=== PATIENT | female | born 2000 | race Caucasian/White ===

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

== ENCOUNTER 2020-06-13 17:20 | Observation (INO) | payer BC ==
[2020-06-13] MEDS ORDERED: Sodium Chloride 0.9% 1000 ML 1,000 ML IV STA (17:44)
--- NOTE | 2020-06-13 17:54 | ERPHSYRPT ---
- History of Present Illness Time Seen by Provider: 06/13/20 17:50 Source: patient Exam Limitations: no limitations Patient Subjective Stated Complaint: emesis, dizziness, abd pain Triage Nursing Assessment: pt to ED c/o vomiting, abd pain, dizziness unknown exact onset. states she has had this issue in past, recently seen in ED at [facility] for same. given toradol and felt better. states emesis many times since 1130 this am. she reports feeling fine at work and getting hot sensation and breaking out in hives, followed by emesis. rates 7/10 abd pain in periumbilicus area. Physician History: Patient is a 20-year-old female presents to our ED with complaints of nausea vomiting abdominal pain and dehydration. Patient states that this typically happens to her after her menstrual period patient states she developed her period, experiences cramping then nausea vomiting and dehydration. Vomiting is nonbloody nonbilious. Symptoms are mild to moderate in intensity. Patient's abdominal pain is periumbilical. Pain is constant. Patient had similar symptoms a few days ago. She followed up with her primary care doctor who treated her with Toradol and symptoms resolved. Allergies/Adverse Reactions: acetaminophen [From [place]] Allergy (Verified 06/13/20 17:52) codeine Allergy (Verified 01/27/19 01:25) Hives hydrocodone [From [place]] Allergy (Verified 06/13/20 17:52) Home Medications: No Reportable Medications [No Reported Medications] 06/13/20 [History] Hx Tetanus, Diphtheria Vaccination/Date Given: Yes Hx Influenza Vaccination/Date Given: Yes Hx Pneumococcal Vaccination/Date Given: No Travel Risk - International Travel Have you traveled outside of the country in past 3 weeks: No - Coronavirus Screening Are you exhibiting any of the following symptoms?: Yes Symptoms: Vomiting/Diarrhea Close contact with a COVID-19 positive Pt in past 14-21 Days: No - Review of Systems Constitutional: No Symptoms, No Fever, No Chills Eyes: No Symptoms Ears, Nose, & Throat: No Symptoms Respiratory: No Symptoms, No Cough, No Dyspnea Cardiac: No Symptoms, No Chest Pain, No Edema, No Syncope Abdominal/Gastrointestinal: No Symptoms, No Abdominal Pain, No Nausea, No Vomiting, No Diarrhea Genitourinary Symptoms: No Symptoms, No Dysuria Musculoskeletal: No Symptoms, No Back Pain, No Neck Pain Skin: No Symptoms, No Rash Neurological: No Symptoms, No Dizziness, No Focal Weakness, No Sensory Changes Psychological: No Symptoms Endocrine: No Symptoms Hematologic/Lymphatic: No Symptoms Immunological/Allergic: No Symptoms All Other Systems: Reviewed and Negative - Past Medical History Pertinent Past Medical History: Yes Neurological History: No Pertinent History ENT History: No Pertinent History Cardiac History: No Pertinent History Respiratory History: No Pertinent History Endocrine Medical History: No Pertinent History Musculoskeletal History: Fractures GI Medical History: No Pertinent History History: No Pertinent History Psycho-Social History: No Pertinent History Female Reproductive Disorders: Endometriosis Other Medical History: fx left ankle, dehydration, ovarian cysts - Past Surgical History Past Surgical History: Yes Neuro Surgical History: No Pertinent History Cardiac: No Pertinent History Respiratory: No Pertinent History Gastrointestinal: Appendectomy Genitourinary: No Pertinent History Musculoskeletal: No Pertinent History Female Surgical History: No Pertinent History Other Surgical History: wisdom teeth removed - Social History Smoking Status: Never smoker Exposure to second hand smoke: Yes Drug Use: none Patient Lives Alone: No - Female History Hx Last Menstrual Period: just ended yesterday Hx Now: No - Nursing Vital Signs Nursing Vital Signs: Initial Vital Signs Temperature 98.3 F 06/13/20 17:43 Pulse Rate 68 06/13/20 17:43 Respiratory Rate 18 06/13/20 17:43 Blood Pressure 153/96 06/13/20 17:43 O2 Sat by Pulse Oximetry 99 06/13/20 17:43 Pain Scale Pain Intensity 5 - Physical Exam General Appearance: no apparent distress, alert Eye Exam: PERRL/EOMI, eyes nml inspection Ears, Nose, Throat Exam: normal ENT inspection, TMs normal, pharynx normal, moist mucous membranes Neck Exam: normal inspection, non-tender, supple, full range of motion Respiratory Exam: normal breath sounds, lungs clear, No respiratory distress Cardiovascular Exam: regular rate/rhythm, normal heart sounds, normal peripheral pulses Gastrointestinal/Abdomen Exam: soft, normal bowel sounds, tenderness, other (Periumbilical tenderness to palpation. Patient has history of appendectomy.), No mass Back Exam: normal inspection, normal range of motion, No CVA tenderness, No vertebral tenderness Extremity Exam: normal inspection, normal range of motion, pelvis stable Neurologic Exam: alert, oriented x 3, cooperative, normal mood/affect, nml cerebellar function, nml station & gait, sensation nml, No motor deficits Skin Exam: normal color, warm, dry, No rash Lymphatic Exam: No adenopathy SpO2 Interpretation: normal SpO2: 99 O2 Delivery: Room Air - Course Nursing assessment & vital signs reviewed: Yes - CT Exams Abdomen/Pelvis CT Interpretation: Tele-radiologist Report (Mild diffuse fecal stasis, 13.4 cm splenomegaly and appendectomy. Also new minimal urinary bladder debris of uncertain etiology. Remaining abdomen pelvis is negative.) Ordered Tests: Active Orders 24 hr Category Date Time Status Up With Assistance ROUTINE Activity 06/13/20 23:40 Active Code Status Order ROUTINE Care 06/13/20 23:40 Active IV Care Q6H Care 06/13/20 23:40 Active IV Insertion STAT Care 06/13/20 17:44 Completed Neuro Checks Q4H Care 06/13/20 23:[address] in Observation ROUTINE Care 06/13/20 23:40 Active Clear Liquid Diet 06/13/20 Breakfast Active ABDOMEN AND PELVIS W CONTRAST [CT] Stat Exams 06/13/20 19:21 Taken CBC W DIFF AM.LAB Lab 06/14/20 04:00 Ordered CBC W DIFF Stat Lab 06/13/20 17:38 Completed CMP AM.LAB Lab 06/14/20 04:00 Ordered CMP Stat Lab 06/13/20 17:38 Completed CULTURE,URINE Stat Lab 06/13/20 19:37 Received HCG QUALITATIVE,SERUM Stat Lab 06/13/20 Completed LIPASE Stat Lab 06/13/20 17:38 Completed Lactic Acid Stat Lab 06/13/20 19:47 Completed Lactic Acid Stat Lab 06/13/20 21:55 Received [place] Screen Stat Lab 06/13/20 21:30 Completed UA W/RFX UR CULTURE Stat Lab 06/13/20 19:37 Completed Urine Triage Profile Stat Lab 06/13/20 21:48 Completed Pulse Oximetry CONTINUOUS RT 06/13/20 23:40 Active Transfer Order Routine Transfer 06/13/20 Completed Medication Summary Generic Name Dose Route Start Last Admin Trade Name Freq PRN Reason Stop Dose Admin Sodium Chloride 1,000 mls @ 100 mls/hr 06/13/20 23:40 Sodium Chloride 0.9% 1000 Ml IV 07/13/20 23:39 .Q10H NANI Ondansetron HCl 4 mg 06/13/20 23:40 Zofran 4 Mg/2 Ml Vial IV 07/13/20 23:39 Q6H PRN PRN NAUSEA/VOMITING Discontinued Medications Generic Name Dose Route Start Last Admin Trade Name Freq PRN Reason Stop Dose Admin Dicyclomine HCl 20 mg 06/13/20 22:16 06/13/20 22:25 Bentyl 20 Mg PO 06/13/20 22:17 20 mg ONCE STA Administration Dicyclomine HCl Confirm 06/13/20 22:24 Bentyl 20 Mg Administered 06/13/20 22:25 Dose 20 mg .ROUTE .STK-MED ONE Sodium Chloride 1,000 mls @ 999 mls/hr 06/13/20 17:44 06/13/20 20:31 Sodium Chloride 0.9% 1000 Ml IV 06/13/20 18:44 Infused .Q1H1M STA Infusion Sodium Chloride Confirm 06/13/20 17:55 Sodium Chloride 0.9% 1000 Ml Administered 06/13/20 17:56 Dose 1,000 mls @ ud .ROUTE .STK-MED ONE Ceftriaxone Sodium/Dextrose 1 g in 50 mls @ 100 mls/hr 06/13/20 20:14 06/13/20 20:30 Rocephin 1 Gm-D5w 50 Ml Bag IV 06/13/20 20:43 100 ml/hr STAT ONE 100 mls/hr Administration Ceftriaxone Sodium/Dextrose Confirm 06/13/20 20:17 Rocephin 1 Gm-D5w 50 Ml Bag Administered 06/13/20 20:18 Dose 1 g in 50 mls @ ud IV .STK-MED ONE Ketorolac Tromethamine 30 mg 06/13/20 19:50 06/13/20 19:58 Toradol 30 Mg Injection IV 06/13/20 19:51 30 mg STAT ONE Administration Ketorolac Tromethamine Confirm 06/13/20 19:57 Toradol 30 Mg Injection Administered 06/13/20 19:58 Dose 30 mg .ROUTE .STK-MED ONE Metoclopramide HCl 10 mg 06/13/20 21:43 06/13/20 21:47 Reglan 10 Mg/2 Ml IV 06/13/20 21:44 10 mg STAT ONE Administration Metoclopramide HCl Confirm 06/13/20 21:45 Reglan 10 Mg/2 Ml Administered 06/13/20 21:46 Dose 10 mg .ROUTE .STK-MED ONE Ondansetron HCl Confirm 06/13/20 18:09 Zofran 4 Mg/2 Ml Vial Administered 06/13/20 18:10 Dose 4 mg .ROUTE .STK-MED ONE Ondansetron HCl 4 mg 06/13/20 18:11 06/13/20 18:13 Zofran 4 Mg/2 Ml Vial IV 06/13/20 18:12 4 mg STAT ONE Administration Lab/Rad Data: Laboratory Result Diagrams 06/13/20 17:38 06/13/20 17:38 Laboratory Results 06/13/20 06/13/20 06/13/20 Range/Units 21:48 21:30 19:47 WBC (4.0-10.5) K/mm3 RBC (4.1-5.4) M/mm3 Hgb (12.0-16.0) gm/dl Hct (35-47) % MCV (78-100) fl MCH (26-32) pg MCHC (32-36) g/dl RDW (11.5-14.0) % Plt Count (150-450) K/mm3 MPV (7.5-11.0) fl Gran % (36.0-66.0) % Eos # (Auto) (0-0.5) Absolute Lymphs (auto) (1.0-4.6) Absolute Monos (auto) (0.0-1.3) Lymphocytes % (24.0-44.0) % Monocytes % (0.0-12.0) % Eosinophils % (0.00-5.0) % Basophils % (0.0-0.4) % Absolute Granulocytes (1.4-6.9) Basophils # (0-0.4) Sodium (137-145) mmol/L Potassium (3.5-5.1) mmol/L Chloride (98-107) mmol/L Carbon Dioxide (22-30) mmol/L Anion Gap (5-15) MEQ/L BUN (7-17) mg/dL Creatinine (0.52-1.04) mg/dL Estimated GFR ML/MIN Glucose (74-106) mg/dL Lactic Acid 2.0 (0.4-2.0) Calcium (8.4-10.2) mg/dL Total Bilirubin (0.2-1.3) mg/dL AST (14-36) U/L ALT (0-35) U/L Alkaline Phosphatase (38-126) U/L Serum Total Protein (6.3-8.2) g/dL Albumin (3.5-5.0) g/dL Lipase (23-300) U/L Urine Color (YELLOW) Urine Appearance (CLEAR) Urine pH (5-6) Ur Specific [place] (1.005-1.025) Urine Protein (Negative) Urine Ketones (NEGATIVE) Urine Blood (0-5) [place]/ul Urine Nitrite (NEGATIVE) Urine Bilirubin (NEGATIVE) Urine Urobilinogen (0-1) mg/dL Ur Leukocyte Esterase (NEGATIVE) Urine WBC (Auto) (0-5) /HPF Urine RBC (Auto) (0-2) /HPF U Epithel Cells (Auto) (FEW) /HPF Urine Bacteria (Auto) (NEGATIVE) /HPF Amorphous Crystals (NEGATIVE) /HPF Urine Mucus (Auto) (NEGATIVE) /HPF Urine Culture Reflexed (NO) Urine Glucose (NEGATIVE) mg/dL Urine Opiates Level NEGATIVE (NEGATIVE) Ur Methadone NEGATIVE (NEGATIVE) Urine Barbiturates NEGATIVE (NEGATIVE) Ur Phencyclidine (PCP) NEGATIVE (NEGATIVE) Urine Amphetamine NEGATIVE (NEGATIVE) U Benzodiazepine Level NEGATIVE (NEGATIVE) Urine Cocaine NEGATIVE (NEGATIVE) Urine Marijuana (THC) NEGATIVE (NEGATIVE) Monoscreen WEAKLY POSITIVE (Negative) 06/13/20 06/13/20 06/13/20 Range/Units 19:37 17:38 17:38 WBC 8.9 (4.0-10.5) K/mm3 RBC 5.07 (4.1-5.4) M/mm3 Hgb 14.4 (12.0-16.0) gm/dl Hct 42.8 (35-47) % MCV 84.4 (78-100) fl MCH 28.4 (26-32) pg MCHC 33.6 (32-36) g/dl RDW 13.4 (11.5-14.0) % Plt Count 260 (150-450) K/mm3 MPV 9.5 (7.5-11.0) fl Gran % 53.7 (36.0-66.0) % Eos # (Auto) 0.01 (0-0.5) Absolute Lymphs (auto) 3.08 (1.0-4.6) Absolute Monos (auto) 1.02 (0.0-1.3) Lymphocytes % 34.6 (24.0-44.0) % Monocytes % 11.4 (0.0-12.0) % Eosinophils % 0.1 (0.00-5.0) % Basophils % 0.2 (0.0-0.4) % Absolute Granulocytes 4.78 (1.4-6.9) Basophils # 0.02 (0-0.4) Sodium 137 (137-145) mmol/L Potassium 3.8 (3.5-5.1) mmol/L Chloride 101 (98-107) mmol/L Carbon Dioxide 26 (22-30) mmol/L Anion Gap 13.5 (5-15) MEQ/L BUN 11 (7-17) mg/dL Creatinine 0.73 (0.52-1.04) mg/dL Estimated GFR > 60.0 ML/MIN Glucose 129 H (74-106) mg/dL Lactic Acid (0.4-2.0) Calcium 10.1 (8.4-10.2) mg/dL Total Bilirubin 0.80 (0.2-1.3) mg/dL AST 30 (14-36) U/L ALT 44 H (0-35) U/L Alkaline Phosphatase 76 (38-126) U/L Serum Total Protein 8.3 H (6.3-8.2) g/dL Albumin 4.7 (3.5-5.0) g/dL Lipase 98 (23-300) U/L Urine Color YELLOW (YELLOW) Urine Appearance CLOUDY (CLEAR) Urine pH 8.0 (5-6) Ur Specific [place] 1.023 (1.005-1.025) Urine Protein 30 (Negative) Urine Ketones TRACE (NEGATIVE) Urine Blood MODERATE (0-5) [place]/ul Urine Nitrite NEGATIVE (NEGATIVE) Urine Bilirubin NEGATIVE (NEGATIVE) Urine Urobilinogen 2 (0-1) mg/dL Ur Leukocyte Esterase NEGATIVE (NEGATIVE) Urine WBC (Auto) 3-5 (0-5) /HPF Urine RBC (Auto) NONE (0-2) /HPF U Epithel Cells (Auto) NONE (FEW) /HPF Urine Bacteria (Auto) FEW (NEGATIVE) /HPF Amorphous Crystals FEW (NEGATIVE) /HPF Urine Mucus (Auto) SLIGHT (NEGATIVE) /HPF Urine Culture Reflexed YES (NO) Urine Glucose NEGATIVE (NEGATIVE) mg/dL Urine Opiates Level (NEGATIVE) Ur Methadone (NEGATIVE) Urine Barbiturates (NEGATIVE) Ur Phencyclidine (PCP) (NEGATIVE) Urine Amphetamine (NEGATIVE) U Benzodiazepine Level (NEGATIVE) Urine Cocaine (NEGATIVE) Urine Marijuana (THC) (NEGATIVE) Monoscreen (Negative) - Progress Progress: improved Progress Note: 06/13/20 21:49 Patient reassessed. She transiently improved. Patient requested discharge. Upon reexamination however patient stated she felt nauseous again. Patient vomited while EDMD in room. Patient received dose of Rocephin for UTI. Splenomegaly observed on CT abdomen pelvis. Monospot ordered. Monospot pending. Urine toxicology screen ordered as well. Patient denies vaginal discharge. No pelvic pain. Patient denies the possibility of STI. Patient declined pelvic exam. Case discussed with Dr. Shen who accepts admission to observation. Plan of care discussed with patient. We will admit patient to observation and treatment of intractable nausea and vomiting. Discussed with .: Matthew Will see patient in: hospital (observation) Counseled pt/family regarding: lab results, diagnosis, rad results - Departure Departure Disposition: Observation Clinical Impression: Nausea and vomiting, UTI (urinary tract infection), Constipation, Mononucleosis Condition: Stable Critical Care Time: No
[2020-06-13] MEDS ORDERED: Sodium Chloride 0.9% 1000 ML 1,000 ML ONE (17:55)
[2020-06-13 18:06] LABS: Absolute Neutrophil Ct (ANC) 4.78 (1.4-6.9); BASOPHIL % 0.2 % (0.0-0.4); Basophil (Absolute #) 0.02 (0-0.4); Eosinophil % 0.1 % (0.00-5.0); Eosinophil (Absolute #) 0.01 (0-0.5); Hematocrit 42.8 % (35-47); Hemoglobin 14.4 gm/dl (12.0-16.0); Lymphocyte (Absolute #) 3.08 (1.0-4.6); Lymphocytes % 34.6 % (24.0-44.0); Mean Cell Volume 84.4 fl (78-100); Mean Corpuscular Hemoglobin 28.4 pg (26-32); Mean Corpuscular Hgb Concent. 33.6 g/dl (32-36); Mean Platelet Volume 9.5 fl (7.5-11.0); Monocyte (Absolute #) 1.02 (0.0-1.3); Monocytes % 11.4 % (0.0-12.0); Neutrophil % 53.7 % (36.0-66.0); Platelet Count 260 K/mm3 (150-450); Red Blood Count 5.07 M/mm3 (4.1-5.4); Red Cell Distribution Width 13.4 % (11.5-14.0); White Blood Count 8.9 K/mm3 (4.0-10.5)
[2020-06-13] MEDS ORDERED: Zofran 4 MG/2 ML VIAL ONE (18:09)
[2020-06-13] MEDS ORDERED: Zofran 4 MG/2 ML VIAL IV ONE (18:11)
[2020-06-13 18:25] LABS: ALBUMIN 4.7 g/dL (3.5-5.0); ALKALINE PHOSPHATASE 76 U/L (38-126); ANION GAP 13.5 MEQ/L (5-15); BLOOD UREA NITROGEN 11 mg/dL (7-17); CHLORIDE 101 mmol/L (98-107); Calcium 10.1 mg/dL (8.4-10.2); Carbon Dioxide 26 mmol/L (22-30); Creatinine 1 0.73 mg/dL (0.52-1.04); EST GLOMERULAR FILTRATION RATE > 60.0 ML/MIN; Glucose 129 mg/dL (74-106); LIPASE 98 U/L (23-300); Potassium 3.8 mmol/L (3.5-5.1); SGOT/AST 30 U/L (14-36); SGPT/ALT 44 U/L (0-35); SODIUM 137 mmol/L (137-145); Total Protein 8.3 g/dL (6.3-8.2)
[2020-06-13] MEDS ORDERED: TORAdol 30 mg Injection IV ONE (19:50)
[2020-06-13] MEDS ORDERED: TORAdol 30 mg Injection ONE (19:57)
[2020-06-13] MEDS ORDERED: ROCEPHIN 1 Gm-D5w 50 ml Bag** 1 G/50 ML IVPB IV ONE ×2 (20:14→20:17)
[2020-06-13 20:32] LABS: Amourphous Crystal FEW /HPF (NEGATIVE); Appearance CLOUDY (CLEAR); Bacteria FEW /HPF (NEGATIVE); Bilirubin NEGATIVE (NEGATIVE); Blood MODERATE Ery/ul (0-5); Glucose NEGATIVE (NEGATIVE); Ketones TRACE (NEGATIVE); Leukocyte Esterase NEGATIVE (NEGATIVE); Mucus SLIGHT /HPF (NEGATIVE); Nitrite NEGATIVE (NEGATIVE); Protein,Urine Dip 30 (Negative); Specific Gravity 1.023 (1.005-1.025); Urobilinogen 2 mg/dL (0-1)
[2020-06-13] MEDS ORDERED: Reglan 10 MG/2 ML IV ONE (21:43)
[2020-06-13] MEDS ORDERED: Reglan 10 MG/2 ML ONE (21:45)
[2020-06-13 22:12] LABS: Amphetamine,Urine NEGATIVE (NEGATIVE); Barbiturate,Urine NEGATIVE (NEGATIVE); Benzodiazepine,Urine NEGATIVE (NEGATIVE); Cocaine,Urine NEGATIVE (NEGATIVE); Methadone,Urine NEGATIVE (NEGATIVE); Opiate,Urine NEGATIVE (NEGATIVE); PCP,Urine NEGATIVE (NEGATIVE); THC,Urine NEGATIVE (NEGATIVE)
[2020-06-13] MEDS ORDERED: BENTYL 20 MG PO STA (22:16)
[2020-06-13] MEDS ORDERED: BENTYL 20 MG ONE (22:24)
[2020-06-13] MEDS ORDERED: Sodium Chloride 0.9% 1000 ML 1,000 ML IV SCH (23:40)
[2020-06-13] MEDS ORDERED: Zofran 4 MG/2 ML VIAL IV PRN (23:40)
[2020-06-14 07:12] LABS: ALKALINE PHOSPHATASE 58 U/L (38-126); ANION GAP 9.8 MEQ/L (5-15); BLOOD UREA NITROGEN 9 mg/dL (7-17); CHLORIDE 105 mmol/L (98-107); Calcium 9.4 mg/dL (8.4-10.2); Carbon Dioxide 24 mmol/L (22-30); Creatinine 1 0.73 mg/dL (0.52-1.04); EST GLOMERULAR FILTRATION RATE > 60.0 ML/MIN; Glucose 96 mg/dL (74-106); Potassium 3.8 mmol/L (3.5-5.1); SGOT/AST 27 U/L (14-36); SGPT/ALT 35 U/L (0-35); SODIUM 135 mmol/L (137-145); Total Protein 7.1 g/dL (6.3-8.2)
[2020-06-14 07:13] LABS: Absolute Neutrophil Ct (ANC) 4.12 (1.4-6.9); BASOPHIL % 0.1 % (0.0-0.4); Basophil (Absolute #) 0.01 (0-0.4); Eosinophil % 0.1 % (0.00-5.0); Eosinophil (Absolute #) 0.01 (0-0.5); Hemoglobin 13.7 gm/dl (12.0-16.0); Lymphocyte (Absolute #) 2.97 (1.0-4.6); Lymphocytes % 36.3 % (24.0-44.0); Mean Cell Volume 84.9 fl (78-100); Mean Corpuscular Hemoglobin 28.4 pg (26-32); Mean Corpuscular Hgb Concent. 33.4 g/dl (32-36); Mean Platelet Volume 9.6 fl (7.5-11.0); Monocyte (Absolute #) 1.07 (0.0-1.3); Monocytes % 13.1 % (0.0-12.0); Neutrophil % 50.4 % (36.0-66.0); Platelet Count 262 K/mm3 (150-450); Red Blood Count 4.83 M/mm3 (4.1-5.4); Red Cell Distribution Width 13.4 % (11.5-14.0); White Blood Count 8.2 K/mm3 (4.0-10.5)
[2020-06-14] MEDS ORDERED: solu-MEDROL 125 MG IV ONE (08:30)
--- NOTE | 2020-06-14 08:47 | XRAY ---
Indication: Nausea and vomiting. "Bad period pain." Multiple contiguous axial images obtained through the abdomen and pelvis using 80 cc Isovue 370 contrast. Comparison: January 26, 2019. Lung bases remain clear. Heart is not enlarged. Noncontrasted stomach and bowel loops appear nonobstructed with interval appendectomy. There is now mild diffuse scattered colonic fecal debris. Spleen is now enlarged measuring 13.4 cm. Tiny cul-de-sac fluid presumed physiologic from rupture/leaking cyst. Urinary bladder demonstrates a new intraluminal filling defect at least 1.2 x 2.8 cm towards the right possibly debris or blood clots. Urinary bladder mass not completely excluded. Remaining liver, gallbladder, pancreas, spleen, adrenal glands, kidneys, ureters, bladder, uterus, and aorta appear unremarkable. No pathologic retroperitoneal lymphadenopathy. Osseous structures intact. Impression: 1. New urinary bladder filling defect possibly debris or blood clots. Bladder mass not completely excluded. Cystoscopy may yield further information. 2. New diffuse fecal stasis and splenomegaly. 3. Tiny physiologic cul-de-sac fluid.
[2020-06-14] MEDS: Dextrose 5% -0.45 NaCl 1000 ML 1,000 ML IV SCH ×2 (09:17→16:00)
[2020-06-14 16:26] VITALS: BP 120/62; PULSE 71; O2SAT 96
--- NOTE | 2020-06-15 08:07 | SSS ---
DISCHARGE DIAGNOSES: 1) MONONUCLEOSIS. 2) URINARY TRACT INFECTION. 3) DEHYDRATION. HISTORY: The patient is a 20 year-old white female who presented to our emergency room with recurrent vomiting, nausea and pelvic pain. The patient has been sick for about a week. She presented to my office initially and given Zofran to take at home, a shot of Phenergan and Toradol which she did better for about a day. She represented to the emergency room at [facility] with the same problems and received a liter of IV fluid and given the same medications plus droperidol and when she was getting drowsy they sent her home but she reports as soon as that wore off she was back to vomiting again which brought her to our emergency room and admitted once again for the dehydration and the vomiting. On workup the patient was found to have a weakly positive mono test and 3 to 5 white blood cells per high power field but did apparently have positive gram-negative rods on the urine culture at this time. The patient was also found on CT scan to have filling defect in the bladder of unknown cause and this is new from the previous evaluations. PAST MEDICAL/SURGICAL HISTORY: The patient otherwise is a 20 year-old female with no medical problems ordinarily. She does have problems with vomiting and nausea when she is on her period cycle which she thought got this started in the first place. The patient was tested for COVID and it was negative. MEDICATIONS: The patient is on no routine home medications. ALLERGIES: ACETAMINOPHEN. HYDROCODONE FROM [place]. CODEINE. PHYSICAL EXAMINATION: Her vital signs on admission showed temperature to be 98.3F, pulse 68, respiratory rate 18 and blood pressure 153/96. O2 saturation 99%. HEENT: Normocephalic, atraumatic. Pupils equal round reactive to light. Extraocular movements intact. Oropharynx is dry. NECK: Supple without lymphadenopathy, thyromegaly or JVD. CHEST: Clear to auscultation. HEART: Regular rate and rhythm. ABDOMEN: Soft. No palpable masses. EXTREMITIES: Without cyanosis, clubbing or edema. NEUROLOGIC: The patient is alert and oriented x3. No focal deficits are noted. LAB DATA AND TESTS: The patient's laboratory studies thus far again the COVID test was negative. Sedimentation rate was 5. Procalcitonin level was normal range at 0.67. The metabolic panel was entirely normal other than sodium slightly slow at 135. She did have normal CBC as well with a white count of 8,200. She had gram-negative rods with ID and sensitivity pending on the urine culture. [place] screen was weakly positive. She had HCG which was negative. UA as catch revealed cloudy with specific gravity 1.023 and 3 to 5 white blood cells per high power field. Lactic acid initially was 2.0. Urine drug screen was negative. She had the CT scan again showing new urinary bladder filling defect possible for debris or blood clots. Bladder mass not completely excluded. There was new diffuse fecal stasis, splenomegaly and tiny physiologic cul-de-sac fluid. HOSPITAL COURSE: The patient was admitted to the medicine bates. She was given Rocephin for what appears to be urinary tract infection while the cultures are pending. We will send her home with Bactrim DS twice a day for seven days again pending the culture report. We will check the serum for IgG and IgM for Braden-Pierce virus to try to confirm whether or not that mono actually caused her illness and as an outpatient once the patient settles down we will do an ultrasound of the pelvis specifically to look at the bladder to see if this filling defect appears to be real. If it is, she will have outpatient cystoscopy.
== END 2020-06-14 18:46 | disposition home or self-care (01) ==
LOC: ED 17:20 → MED SURG 23:26
PROVIDERS: ADMIT Family Medicine; ATTEND Family Medicine
DX: B27.90 Infectious mononucleosis, unspecified without complication (principal); R42 Dizziness and giddiness; R10.9 Unspecified abdominal pain; R11.10 Vomiting, unspecified; E86.0 Dehydration; N39.0 Urinary tract infection, site not specified; Z11.59 Encounter for screening for other viral diseases
CPT/HCPCS: 36000; 36415; 74177; 80053; 80307; 81001; 81025; 83605; 83690; 84145; 85025; 85652; 86308; 86664; 86665; 87077; 87086; 87186; 96360; 96365; 96374; 96375; 99284; G0378; U0003; J0696; J1885; J2405; J2930; A9270-GY

== ENCOUNTER 2020-06-22 17:16 | Emergency (ER) | payer BC ==
[2020-06-22] MEDS ORDERED: Zofran 4 MG/2 ML VIAL IV ONE (17:35)
[2020-06-22] MEDS ORDERED: Zofran 4 MG/2 ML VIAL ONE (17:42)
[2020-06-22] MEDS ORDERED: Sodium Chloride 0.9% 1000 ML 1,000 ML ONE ×3 (17:42→19:33)
[2020-06-22] MEDS: Sodium Chloride 0.9% 1000 ML 1,000 ML IV STA ×2 (17:45→18:47)
[2020-06-22 17:58] LABS: Absolute Neutrophil Ct (ANC) 4.93 (1.4-6.9); BASOPHIL % 0.3 % (0.0-0.4); Basophil (Absolute #) 0.02 (0-0.4); Eosinophil % 0.1 % (0.00-5.0); Eosinophil (Absolute #) 0.01 (0-0.5); Hematocrit 40.5 % (35-47); Hemoglobin 13.8 gm/dl (12.0-16.0); Lymphocyte (Absolute #) 1.63 (1.0-4.6); Lymphocytes % 22.5 % (24.0-44.0); Mean Cell Volume 82.7 fl (78-100); Mean Corpuscular Hemoglobin 28.2 pg (26-32); Mean Corpuscular Hgb Concent. 34.1 g/dl (32-36); Mean Platelet Volume 9.4 fl (7.5-11.0); Monocyte (Absolute #) 0.65 (0.0-1.3); Neutrophil % 68.1 % (36.0-66.0); Platelet Count 222 K/mm3 (150-450); Red Cell Distribution Width 13.6 % (11.5-14.0); White Blood Count 7.2 K/mm3 (4.0-10.5)
[2020-06-22 18:03] LABS: Amourphous Crystal FEW /HPF (NEGATIVE); Appearance CLOUDY (CLEAR); Bacteria RARE /HPF (NEGATIVE); Bilirubin NEGATIVE (NEGATIVE); Blood SMALL Ery/ul (0-5); Epithelial Cells RARE /HPF (FEW); Glucose NEGATIVE (NEGATIVE); Ketones MODERATE (NEGATIVE); Leukocyte Esterase NEGATIVE (NEGATIVE); Mucus SLIGHT /HPF (NEGATIVE); Nitrite NEGATIVE (NEGATIVE); Protein,Urine Dip 30 (Negative); Specific Gravity 1.021 (1.005-1.025); Urobilinogen NEGATIVE mg/dL (0-1); WBC 0-2 /HPF (0-5)
--- NOTE | 2020-06-22 18:06 | ERPHSYRPT ---
- History of Present Illness Time Seen by Provider: 06/22/20 17:22 Historian: patient Exam Limitations: no limitations Patient Subjective Stated Complaint: pt here for abd pain and vomiting since 1400 today, she is being treated for a UTI now Triage Nursing Assessment: pt alert, walked in, vomited x1, resp easy,, skin w/d/pabd soft and tender to touch Physician History: Patient is a 20-year-old female presents to our ED with complaints of nausea vomiting and epigastric pain. Patient was in our ED approximately 1 week ago for the same. She was diagnosed with a urinary tract infection. Patient was admitted to the hospital for treatment. Patient was discharged. Patient is still taking Bactrim antibiotic which was prescribed to her at time of discharge. Patient states since discharge she had been feeling well up until today. She was at work when she developed acute onset periumbilical pain with nausea and vomiting. Pain described as an ache that is localized. No radiation per se, However she has con commitment back pain. No specific worsening improving factors. Patient also states that she has been experiencing some vaginal discharge. Patient admits to being sexually active occasionally wearing protection. Patient is otherwise healthy. She voices no other complaints or concerns at this time. Timing/Duration: today Activities at Onset: none Quality: aching Abdominal Pain Onset Location: periumbilical Pain Radiation: no radiation Severity of Pain-Max: moderate Severity of Pain-Current: mild Modifying Factors: Improves With: nothing Associated Symptoms: back, nausea, vomiting, No fever/chills, No shortness of breath, No syncope Allergies/Adverse Reactions: acetaminophen [From [place]] Allergy (Verified 06/22/20 17:31) codeine Allergy (Verified 06/22/20 17:31) Hives hydrocodone [From [place]] Allergy (Verified 06/22/20 17:31) Hx Tetanus, Diphtheria Vaccination/Date Given: Yes Hx Influenza Vaccination/Date Given: Yes Hx Pneumococcal Vaccination/Date Given: No Immunizations Up to Date: Yes Travel Risk - International Travel Have you traveled outside of the country in past 3 weeks: No - Coronavirus Screening Are you exhibiting any of the following symptoms?: Yes Symptoms: Vomiting/Diarrhea Close contact with a COVID-19 positive Pt in past 14-21 Days: No - Review of Systems Constitutional: No Symptoms, No Fever, No Chills Eyes: No Symptoms Ears, Nose, & Throat: No Symptoms Respiratory: No Symptoms, No Cough, No Dyspnea Cardiac: No Symptoms, No Chest Pain, No Edema, No Syncope Abdominal/Gastrointestinal: No Symptoms, No Abdominal Pain, No Nausea, No Vomiting, No Diarrhea Genitourinary Symptoms: No Symptoms, No Dysuria Musculoskeletal: No Symptoms, No Back Pain, No Neck Pain Skin: No Symptoms, No Rash Neurological: No Symptoms, No Dizziness, No Focal Weakness, No Sensory Changes Psychological: No Symptoms Endocrine: No Symptoms Hematologic/Lymphatic: No Symptoms Immunological/Allergic: No Symptoms All Other Systems: Reviewed and Negative - Past Medical History Pertinent Past Medical History: Yes Neurological History: No Pertinent History ENT History: No Pertinent History Cardiac History: No Pertinent History Respiratory History: No Pertinent History Endocrine Medical History: No Pertinent History Musculoskeletal History: Fractures GI Medical History: No Pertinent History History: No Pertinent History Psycho-Social History: No Pertinent History Female Reproductive Disorders: Endometriosis Other Medical History: fx left ankle, dehydration, ovarian cysts - Past Surgical History Past Surgical History: Yes Neuro Surgical History: No Pertinent History Cardiac: No Pertinent History Respiratory: No Pertinent History Gastrointestinal: Appendectomy Genitourinary: No Pertinent History Musculoskeletal: No Pertinent History Female Surgical History: No Pertinent History Other Surgical History: wisdom teeth removed - Social History Smoking Status: Never smoker Exposure to second hand smoke: No Drug Use: none Patient Lives Alone: No - Female History Hx Last Menstrual Period: 1week ago Hx Now: No - Nursing Vital Signs Nursing Vital Signs: Initial Vital Signs Temperature 97.9 F 06/22/20 17:18 Pulse Rate 95 H 06/22/20 17:18 Respiratory Rate 16 06/22/20 17:18 Blood Pressure 150/98 06/22/20 17:18 O2 Sat by Pulse Oximetry 100 06/22/20 17:18 Pain Scale Pain Intensity 2 - Physical Exam General Appearance: no apparent distress Eye Exam: PERRL/EOMI, eyes nml inspection, scleral icterus Ears, Nose, Throat Exam: normal ENT inspection Neck Exam: normal inspection, non-tender, supple, full range of motion Respiratory Exam: normal breath sounds, lungs clear, No respiratory distress Cardiovascular Exam: regular rate/rhythm, normal heart sounds Gastrointestinal/Abdomen Exam: soft, tenderness, other (Periumbilical tenderness to palpation.), No mass, No pulsatile mass, No hepatomegaly, No organomegaly Pelvic Exam: normal external exam, No adnexal tenderness, No adnexal mass, No cervical motion tenderness, No vaginal bleeding, No vaginal discharge Back Exam: normal inspection, normal range of motion, No CVA tenderness Extremity Exam: normal inspection, normal range of motion, pelvis stable Neurologic Exam: alert, oriented x 3, cooperative, 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 Remaining abdomen/pelvis negative.) Ordered Tests: Active Orders 24 hr Category Date Time Status IV Insertion STAT Care 06/22/20 17:35 Active Pelvic Exam Assist STAT Care 06/22/20 17:46 Active ABDOMEN AND PELVIS W/0 CONTRAS [CT] Stat Exams 06/22/20 18:44 Taken CBC W DIFF Stat Lab 06/22/20 17:54 Completed CMP Stat Lab 06/22/20 17:54 Completed CULTURE,URINE Stat Lab 06/22/20 17:49 Received HCG,QUALITATIVE URINE Stat Lab 06/22/20 17:50 Completed LIPASE Stat Lab 06/22/20 17:54 Completed MAG [MAGNESIUM] Stat Lab 06/22/20 17:54 Completed TROPONIN Q3H Lab 06/22/20 17:54 Completed TROPONIN Q3H Lab 06/22/20 20:59 Completed TROPONIN Q3H Lab 06/22/20 23:45 Ordered TROPONIN Q3H Lab 06/23/20 02:45 Ordered TROPONIN Q3H Lab 06/23/20 05:45 Ordered TSH [TSH, 3RD Generation] Stat Lab 06/22/20 17:53 Completed UA W/RFX UR CULTURE Stat Lab 06/22/20 17:49 Completed Urine Triage Profile Stat Lab 06/22/20 17:49 Completed Wet Prep Stat Lab 06/22/20 18:00 Completed Medication Summary Generic Name Dose Route Start Last Admin Trade Name Freq PRN Reason Stop Dose Admin Potassium Chloride 20 meq in 100 mls @ 50 mls/hr 06/22/20 18:45 06/22/20 21:32 Potassium Chloride 20 Meq In Water 100ml IV 06/22/20 22:44 50 mls/hr Q2H NANI Administration Sodium Chloride 1,000 mls @ 100 mls/hr 06/22/20 18:45 06/22/20 19:33 Sodium Chloride 0.9% 1000 Ml IV 07/22/20 18:44 100 mls/hr .Q10H NANI Administration Discontinued Medications Generic Name Dose Route Start Last Admin Trade Name Tarik PRN Reason Stop Dose Admin Al Hydrox/Mg Hydrox/Simethicone Confirm 06/22/20 19:26 Maalox Es 30 Ml Unit Dose Administered 06/22/20 19:27 Dose 30 ml .ROUTE .STK-MED ONE Droperidol 1.25 mg 06/22/20 21:15 06/22/20 21:33 Inapsine 5 Mg/2 Ml IV 06/22/20 21:16 1.25 mg STAT ONE Administration Droperidol Confirm 06/22/20 21:27 Inapsine 5 Mg/2 Ml Administered 06/22/20 21:28 Dose 5 mg .ROUTE .STK-MED ONE Sodium Chloride 1,000 mls @ 999 mls/hr 06/22/20 17:35 06/22/20 18:47 Sodium Chloride 0.9% 1000 Ml IV 06/22/20 18:35 999 mls/hr .Q1H1M STA Administration Sodium Chloride Confirm 06/22/20 17:42 Sodium Chloride 0.9% 1000 Ml Administered 06/22/20 17:43 Dose 1,000 mls @ ud .ROUTE .STK-MED ONE Ceftriaxone Sodium/Dextrose 1 g in 50 mls @ 100 mls/hr 06/22/20 18:28 06/22/20 19:34 Rocephin 1 Gm-D5w 50 Ml Bag IV 06/22/20 18:57 Infused STAT ONE Infusion Ceftriaxone Sodium/Dextrose Confirm 06/22/20 18:45 Rocephin 1 Gm-D5w 50 Ml Bag Administered 06/22/20 18:46 Dose 1 g in 50 mls @ ud IV .STK-MED ONE Ketorolac Tromethamine 30 mg 06/22/20 18:41 06/22/20 18:47 Toradol 30 Mg Injection IV 06/22/20 18:42 30 mg STAT ONE Administration Ketorolac Tromethamine Confirm 06/22/20 18:44 Toradol 30 Mg Injection Administered 06/22/20 18:45 Dose 30 mg .ROUTE .STK-MED ONE Lidocaine HCl Confirm 06/22/20 19:25 Xylocaine Hcl Viscous * Administered 06/22/20 19:26 Dose 15 ml .ROUTE .STK-MED ONE Magnesium Hydroxide 45 ml 06/22/20 18:51 06/22/20 19:31 Gi Cocktail 45 Ml (Maalox/Lidocaine) PO 06/22/20 18:52 45 ml STAT ONE Administration Ondansetron HCl 4 mg 06/22/20 17:35 06/22/20 17:45 Zofran 4 Mg/2 Ml Vial IV 06/22/20 17:36 4 mg STAT ONE Administration Ondansetron HCl Confirm 06/22/20 17:42 Zofran 4 Mg/2 Ml Vial Administered 06/22/20 17:43 Dose 4 mg .ROUTE .STK-MED ONE Pantoprazole Sodium 40 mg 06/22/20 18:50 06/22/20 18:57 Protonix 40 Mg Iv IV 06/22/20 18:51 40 mg STAT ONE Administration Pantoprazole Sodium Confirm 06/22/20 18:53 Protonix 40 Mg Iv Administered 06/22/20 18:54 Dose 40 mg IV .STK-MED ONE Lab/Rad Data: Laboratory Result Diagrams 06/22/20 17:54 06/22/20 17:54 Laboratory Results 06/22/20 06/22/20 06/22/20 Range/Units 20:59 18:00 17:54 WBC (4.0-10.5) K/mm3 RBC (4.1-5.4) M/mm3 Hgb (12.0-16.0) gm/dl Hct (35-47) % MCV (78-100) fl MCH (26-32) pg MCHC (32-36) g/dl RDW (11.5-14.0) % Plt Count (150-450) K/mm3 MPV (7.5-11.0) fl Gran % (36.0-66.0) % Eos # (Auto) (0-0.5) Absolute Lymphs (auto) (1.0-4.6) Absolute Monos (auto) (0.0-1.3) Lymphocytes % (24.0-44.0) % Monocytes % (0.0-12.0) % Eosinophils % (0.00-5.0) % Basophils % (0.0-0.4) % Absolute Granulocytes (1.4-6.9) Basophils # (0-0.4) Sodium (137-145) mmol/L Potassium (3.5-5.1) mmol/L Chloride (98-107) mmol/L Carbon Dioxide (22-30) mmol/L Anion Gap (5-15) MEQ/L BUN (7-17) mg/dL Creatinine (0.52-1.04) mg/dL Estimated GFR ML/MIN Glucose (74-106) mg/dL Calcium (8.4-10.2) mg/dL Magnesium 1.9 (1.6-2.3) mg/dL Total Bilirubin (0.2-1.3) mg/dL AST (14-36) U/L ALT (0-35) U/L Alkaline Phosphatase (38-126) U/L Troponin I < 0.012 (0.000-0.034) ng/mL Serum Total Protein (6.3-8.2) g/dL Albumin (3.5-5.0) g/dL Lipase (23-300) U/L TSH 3rd Generation (0.47-4.68) mIU/L Urine Color (YELLOW) Urine Appearance (CLEAR) Urine pH (5-6) Ur Specific [place] (1.005-1.025) Urine Protein (Negative) Urine Ketones (NEGATIVE) Urine Blood (0-5) [place]/ul Urine Nitrite (NEGATIVE) Urine Bilirubin (NEGATIVE) Urine Urobilinogen (0-1) mg/dL Ur Leukocyte Esterase (NEGATIVE) Urine WBC (Auto) (0-5) /HPF Urine RBC (Auto) (0-2) /HPF U Epithel Cells (Auto) (FEW) /HPF Urine Bacteria (Auto) (NEGATIVE) /HPF Amorphous Crystals (NEGATIVE) /HPF Urine Mucus (Auto) (NEGATIVE) /HPF Urine Culture Reflexed (NO) Urine Glucose (NEGATIVE) mg/dL Urine HCG, Qual (Negative) WBC (Wet Prep) Few RBC (Wet Prep) None Seen Epi Cells (Wet Prep) Few Bacteria (Wet Prep) Rare Clue Cells (Wet Prep) None Seen Trichomonas (Wet Prep) None Seen Budding Yeast (Wet Prp) None Seen Urine Opiates Level (NEGATIVE) Ur Methadone (NEGATIVE) Urine Barbiturates (NEGATIVE) Ur Phencyclidine (PCP) (NEGATIVE) Urine Amphetamine (NEGATIVE) U Benzodiazepine Level (NEGATIVE) Urine Cocaine (NEGATIVE) Urine Marijuana (THC) (NEGATIVE) Chlamydia DNA Probe (NEGATIVE) N.gonorrhoeae DNA Probe (NEGATIVE) 06/22/20 06/22/20 06/22/20 Range/Units 17:54 17:54 17:54 WBC 7.2 (4.0-10.5) K/mm3 RBC 4.90 (4.1-5.4) M/mm3 Hgb 13.8 (12.0-16.0) gm/dl Hct 40.5 (35-47) % MCV 82.7 (78-100) fl MCH 28.2 (26-32) pg MCHC 34.1 (32-36) g/dl RDW 13.6 (11.5-14.0) % Plt Count 222 (150-450) K/mm3 MPV 9.4 (7.5-11.0) fl Gran % 68.1 H (36.0-66.0) % Eos # (Auto) 0.01 (0-0.5) Absolute Lymphs (auto) 1.63 (1.0-4.6) Absolute Monos (auto) 0.65 (0.0-1.3) Lymphocytes % 22.5 L (24.0-44.0) % Monocytes % 9.0 (0.0-12.0) % Eosinophils % 0.1 (0.00-5.0) % Basophils % 0.3 (0.0-0.4) % Absolute Granulocytes 4.93 (1.4-6.9) Basophils # 0.02 (0-0.4) Sodium 134 L (137-145) mmol/L Potassium 3.1 L (3.5-5.1) mmol/L Chloride 101 (98-107) mmol/L Carbon Dioxide 20 L (22-30) mmol/L Anion Gap 16.2 H (5-15) MEQ/L BUN 13 (7-17) mg/dL Creatinine 0.87 (0.52-1.04) mg/dL Estimated GFR > 60.0 ML/MIN Glucose 127 H (74-106) mg/dL Calcium 10.1 (8.4-10.2) mg/dL Magnesium (1.6-2.3) mg/dL Total Bilirubin 1.10 (0.2-1.3) mg/dL AST 37 H (14-36) U/L ALT 52 H (0-35) U/L Alkaline Phosphatase 75 (38-126) U/L Troponin I < 0.012 (0.000-0.034) ng/mL Serum Total Protein 8.1 (6.3-8.2) g/dL Albumin 4.7 (3.5-5.0) g/dL Lipase 108 (23-300) U/L TSH 3rd Generation (0.47-4.68) mIU/L Urine Color (YELLOW) Urine Appearance (CLEAR) Urine pH (5-6) Ur Specific [place] (1.005-1.025) Urine Protein (Negative) Urine Ketones (NEGATIVE) Urine Blood (0-5) [place]/ul Urine Nitrite (NEGATIVE) Urine Bilirubin (NEGATIVE) Urine Urobilinogen (0-1) mg/dL Ur Leukocyte Esterase (NEGATIVE) Urine WBC (Auto) (0-5) /HPF Urine RBC (Auto) (0-2) /HPF U Epithel Cells (Auto) (FEW) /HPF Urine Bacteria (Auto) (NEGATIVE) /HPF Amorphous Crystals (NEGATIVE) /HPF Urine Mucus (Auto) (NEGATIVE) /HPF Urine Culture Reflexed (NO) Urine Glucose (NEGATIVE) mg/dL Urine HCG, Qual (Negative) WBC (Wet Prep) RBC (Wet Prep) Epi Cells (Wet Prep) Bacteria (Wet Prep) Clue Cells (Wet Prep) Trichomonas (Wet Prep) Budding Yeast (Wet Prp) Urine Opiates Level (NEGATIVE) Ur Methadone (NEGATIVE) Urine Barbiturates (NEGATIVE) Ur Phencyclidine (PCP) (NEGATIVE) Urine Amphetamine (NEGATIVE) U Benzodiazepine Level (NEGATIVE) Urine Cocaine (NEGATIVE) Urine Marijuana (THC) (NEGATIVE) Chlamydia DNA Probe (NEGATIVE) N.gonorrhoeae DNA Probe (NEGATIVE) 06/22/20 06/22/20 06/22/20 Range/Units 17:53 17:50 17:49 WBC (4.0-10.5) K/mm3 RBC (4.1-5.4) M/mm3 Hgb (12.0-16.0) gm/dl Hct (35-47) % MCV (78-100) fl MCH (26-32) pg MCHC (32-36) g/dl RDW (11.5-14.0) % Plt Count (150-450) K/mm3 MPV (7.5-11.0) fl Gran % (36.0-66.0) % Eos # (Auto) (0-0.5) Absolute Lymphs (auto) (1.0-4.6) Absolute Monos (auto) (0.0-1.3) Lymphocytes % (24.0-44.0) % Monocytes % (0.0-12.0) % Eosinophils % (0.00-5.0) % Basophils % (0.0-0.4) % Absolute Granulocytes (1.4-6.9) Basophils # (0-0.4) Sodium (137-145) mmol/L Potassium (3.5-5.1) mmol/L Chloride (98-107) mmol/L Carbon Dioxide (22-30) mmol/L Anion Gap (5-15) MEQ/L BUN (7-17) mg/dL Creatinine (0.52-1.04) mg/dL Estimated GFR ML/MIN Glucose (74-106) mg/dL Calcium (8.4-10.2) mg/dL Magnesium (1.6-2.3) mg/dL Total Bilirubin (0.2-1.3) mg/dL AST (14-36) U/L ALT (0-35) U/L Alkaline Phosphatase (38-126) U/L Troponin I (0.000-0.034) ng/mL Serum Total Protein (6.3-8.2) g/dL Albumin (3.5-5.0) g/dL Lipase (23-300) U/L TSH 3rd Generation 1.450 (0.47-4.68) mIU/L Urine Color (YELLOW) Urine Appearance (CLEAR) Urine pH (5-6) Ur Specific [place] (1.005-1.025) Urine Protein (Negative) Urine Ketones (NEGATIVE) Urine Blood (0-5) [place]/ul Urine Nitrite (NEGATIVE) Urine Bilirubin (NEGATIVE) Urine Urobilinogen (0-1) mg/dL Ur Leukocyte Esterase (NEGATIVE) Urine WBC (Auto) (0-5) /HPF Urine RBC (Auto) (0-2) /HPF U Epithel Cells (Auto) (FEW) /HPF Urine Bacteria (Auto) (NEGATIVE) /HPF Amorphous Crystals (NEGATIVE) /HPF Urine Mucus (Auto) (NEGATIVE) /HPF Urine Culture Reflexed (NO) Urine Glucose (NEGATIVE) mg/dL Urine HCG, Qual NEGATIVE (Negative) WBC (Wet Prep) RBC (Wet Prep) Epi Cells (Wet Prep) Bacteria (Wet Prep) Clue Cells (Wet Prep) Trichomonas (Wet Prep) Budding Yeast (Wet Prp) Urine Opiates Level NEGATIVE (NEGATIVE) Ur Methadone NEGATIVE (NEGATIVE) Urine Barbiturates NEGATIVE (NEGATIVE) Ur Phencyclidine (PCP) NEGATIVE (NEGATIVE) Urine Amphetamine NEGATIVE (NEGATIVE) U Benzodiazepine Level NEGATIVE (NEGATIVE) Urine Cocaine NEGATIVE (NEGATIVE) Urine Marijuana (THC) NEGATIVE (NEGATIVE) Chlamydia DNA Probe (NEGATIVE) N.gonorrhoeae DNA Probe (NEGATIVE) 06/22/20 06/22/20 Range/Units 17:49 17:46 WBC (4.0-10.5) K/mm3 RBC (4.1-5.4) M/mm3 Hgb (12.0-16.0) gm/dl Hct (35-47) % MCV (78-100) fl MCH (26-32) pg MCHC (32-36) g/dl RDW (11.5-14.0) % Plt Count (150-450) K/mm3 MPV (7.5-11.0) fl Gran % (36.0-66.0) % Eos # (Auto) (0-0.5) Absolute Lymphs (auto) (1.0-4.6) Absolute Monos (auto) (0.0-1.3) Lymphocytes % (24.0-44.0) % Monocytes % (0.0-12.0) % Eosinophils % (0.00-5.0) % Basophils % (0.0-0.4) % Absolute Granulocytes (1.4-6.9) Basophils # (0-0.4) Sodium (137-145) mmol/L Potassium (3.5-5.1) mmol/L Chloride (98-107) mmol/L Carbon Dioxide (22-30) mmol/L Anion Gap (5-15) MEQ/L BUN (7-17) mg/dL Creatinine (0.52-1.04) mg/dL Estimated GFR ML/MIN Glucose (74-106) mg/dL Calcium (8.4-10.2) mg/dL Magnesium (1.6-2.3) mg/dL Total Bilirubin (0.2-1.3) mg/dL AST (14-36) U/L ALT (0-35) U/L Alkaline Phosphatase (38-126) U/L Troponin I (0.000-0.034) ng/mL Serum Total Protein (6.3-8.2) g/dL Albumin (3.5-5.0) g/dL Lipase (23-300) U/L TSH 3rd Generation (0.47-4.68) mIU/L Urine Color YELLOW (YELLOW) Urine Appearance CLOUDY (CLEAR) Urine pH 7.0 (5-6) Ur Specific [place] 1.021 (1.005-1.025) Urine Protein 30 (Negative) Urine Ketones MODERATE (NEGATIVE) Urine Blood SMALL (0-5) [place]/ul Urine Nitrite NEGATIVE (NEGATIVE) Urine Bilirubin NEGATIVE (NEGATIVE) Urine Urobilinogen NEGATIVE (0-1) mg/dL Ur Leukocyte Esterase NEGATIVE (NEGATIVE) Urine WBC (Auto) 0-2 (0-5) /HPF Urine RBC (Auto) 11-15 (0-2) /HPF U Epithel Cells (Auto) RARE (FEW) /HPF Urine Bacteria (Auto) RARE (NEGATIVE) /HPF Amorphous Crystals FEW (NEGATIVE) /HPF Urine Mucus (Auto) SLIGHT (NEGATIVE) /HPF Urine Culture Reflexed YES (NO) Urine Glucose NEGATIVE (NEGATIVE) mg/dL Urine HCG, Qual (Negative) WBC (Wet Prep) RBC (Wet Prep) Epi Cells (Wet Prep) Bacteria (Wet Prep) Clue Cells (Wet Prep) Trichomonas (Wet Prep) Budding Yeast (Wet Prp) Urine Opiates Level (NEGATIVE) Ur Methadone (NEGATIVE) Urine Barbiturates (NEGATIVE) Ur Phencyclidine (PCP) (NEGATIVE) Urine Amphetamine (NEGATIVE) U Benzodiazepine Level (NEGATIVE) Urine Cocaine (NEGATIVE) Urine Marijuana (THC) (NEGATIVE) Chlamydia DNA Probe NOT DETECTED (NEGATIVE) N.gonorrhoeae DNA Probe NOT DETECTED (NEGATIVE) - Progress Progress: improved Progress Note: 06/22/20 23:54 Patient reassessed. She feels well. Abdominal pain resolved. Patient stated she observed vaginal discharge. Pelvic exam completed with the assistance of RN. GC chlamydia negative. Wet prep negative. UA negative. TSH was ordered that is also negative. Potassium was low at 3.1. Potassium replaced IV as patient unable to tolerate p.o. at the time. Patient currently able to tolerate p.o. No nausea or vomiting observed. Patient has been taking Bactrim. However we checked microbiology of last UA and found that her E. coli is resistant to Bactrim. So patient received a dose of ceftriaxone in our ED. Once we received the report that patient was resistant to Bactrim we called in a prescription for Keflex. Patient picked up her Keflex. We will continue to take her Bactrim instead. So patient will discontinue her Bactrim and complete her course of Keflex. CT abdomen pelvis does small cul-de-sac fluid probably from ruptured/leaking cyst. Remaining abdomen pelvis negative. Case discussed with Dr. Shen. Patient will follow up with Dr. Shen within 48 hours for reevaluation. Patient voices no other complaints or concerns at this time. She is requesting discharge. Will discharge home at this time. 06/22/20 23:57 Counseled pt/family regarding: lab results, diagnosis, need for follow-up, rad results - Departure Departure Disposition: Home Clinical Impression: Hematuria, Proteinuria, Abdominal pain, Hypokalemia, Dehydration Condition: Stable Critical Care Time: No Referrals: GERTRUDE SHEN [Primary Care Provider] - Additional Instructions: Discharge/Care Plan BLUE MARINELLI was seen on 06/22/20 in the Emergency Room. The patient was counseled regarding Diagnosis,Lab results, Imaging studies, need for follow up and when to return to the Emergency Room. Prescriptions given: Discharge Note I have spoken with the patient and/or caregivers. I have explained the patient's condition, diagnosis and treatment plan based on the information available to me at this time. I have answered the patient's and/or caregiver's questions and addressed any concerns. The patient and/or caregivers have as good understanding of the patient's diagnosis, condition and treatment plan as can be expected at this point. The vital signs have been stable. The patient's condition is stable and appropriate for discharge from the emergency department. The patient will pursue further outpatient evaluation with the primary care physician or other designated or consulting physician as outlined in the discharge instructions. The patient and/or caregivers are agreeable to this plan of care and follow-up instructions have been explained in detail. The patient and/or caregivers have received these instruction. The patient/and or caregivers are aware that any significant change in condition or worsening of symptoms should prompt an immediate return to this or the closest emergency department or call 911.
[2020-06-22 18:12] LABS: ALBUMIN 4.7 g/dL (3.5-5.0); ALKALINE PHOSPHATASE 75 U/L (38-126); ANION GAP 16.2 MEQ/L (5-15); BLOOD UREA NITROGEN 13 mg/dL (7-17); CHLORIDE 101 mmol/L (98-107); Calcium 10.1 mg/dL (8.4-10.2); Carbon Dioxide 20 mmol/L (22-30); Creatinine 1 0.87 mg/dL (0.52-1.04); EST GLOMERULAR FILTRATION RATE > 60.0 ML/MIN; Glucose 127 mg/dL (74-106); LIPASE 108 U/L (23-300); SGOT/AST 37 U/L (14-36); SGPT/ALT 52 U/L (0-35); SODIUM 134 mmol/L (137-145); Total Protein 8.1 g/dL (6.3-8.2)
[2020-06-22 18:14] LABS: Potassium 3.1 mmol/L (3.5-5.1)
[2020-06-22 18:15] LABS: Amphetamine,Urine NEGATIVE (NEGATIVE); Barbiturate,Urine NEGATIVE (NEGATIVE); Benzodiazepine,Urine NEGATIVE (NEGATIVE); Cocaine,Urine NEGATIVE (NEGATIVE); Methadone,Urine NEGATIVE (NEGATIVE); Opiate,Urine NEGATIVE (NEGATIVE); PCP,Urine NEGATIVE (NEGATIVE); THC,Urine NEGATIVE (NEGATIVE)
[2020-06-22 18:23] LABS: Bacteria Rare; Clue Cells None Seen; Red Blood Cells None Seen; Trichomonas None Seen; White Blood Cells Few; Yeast None Seen
[2020-06-22] MEDS ORDERED: ROCEPHIN 1 Gm-D5w 50 ml Bag** 1 G/50 ML IVPB IV ONE ×2 (18:28→18:45)
[2020-06-22] MEDS ORDERED: TORAdol 30 mg Injection IV ONE (18:41)
[2020-06-22] MEDS ORDERED: TORAdol 30 mg Injection ONE (18:44)
[2020-06-22] MEDS ORDERED: POTASSIUM CHLORIDE 20 mEq IN WATER 100ML 100 ML IV ONE ×2 (18:45→21:27)
[2020-06-22] MEDS ORDERED: Sodium Chloride 0.9% 1000 ML 1,000 ML IV SCH (18:45)
[2020-06-22] MEDS: POTASSIUM CHLORIDE 20 mEq IN WATER 100ML 20 MEQ/100 ML BAG IV SCH ×2 (18:48→21:32)
[2020-06-22] MEDS ORDERED: PROTONIX 40 MG IV IV ONE ×2 (18:50→18:53)
[2020-06-22] MEDS ORDERED: GI COCKTAIL 45 ML (Maalox/Lidocaine) PO ONE (18:51)
[2020-06-22] MEDS ORDERED: XYLOCAINE HCl Viscous ONE (19:25)
[2020-06-22] MEDS ORDERED: MAALOX ES 30 ML UNIT DOSE ONE (19:26)
[2020-06-22 19:28] LABS: CHLAMYDIA DNA NOT DETECTED (NEGATIVE); GC DNA Probe NOT DETECTED (NEGATIVE)
[2020-06-22] MEDS ORDERED: Inapsine 5 MG/2 ML IV ONE (21:15)
[2020-06-22] MEDS ORDERED: Inapsine 5 MG/2 ML ONE (21:27)
[2020-06-22 23:38] VITALS: O2SAT 100
[2020-06-22 23:56] VITALS: BP 114/56; PULSE 85
--- NOTE | 2020-06-23 08:48 | XRAY ---
Indication: Diffuse abdominal pain. Multiple contiguous images obtained through the abdomen and pelvis without contrast as ordered. Comparison: June 13, 2020. Lung bases remain clear. Heart is not enlarged. Noncontrasted stomach and bowel loops remain nonobstructed again with appendectomy. New small cul-de-sac fluid presumed physiologic from rupture/leaking cyst. No free air. Remaining liver, gallbladder, pancreas, spleen, adrenal glands, kidneys, ureters, bladder, uterus, and aorta appear unremarkable for noncontrast exam. Impression: 1. New cul-de-sac fluid presumed physiologic. 2. Remaining CT abdomen/pelvis without contrast exam is negative.
== END 2020-06-22 23:54 | disposition home or self-care (01) ==
LOC: ED 17:16
DX: R10.9 Unspecified abdominal pain (principal); R11.2 Nausea with vomiting, unspecified; N39.0 Urinary tract infection, site not specified; R31.9 Hematuria, unspecified; R80.9 Proteinuria, unspecified; E87.6 Hypokalemia; E86.0 Dehydration; N89.8 Other specified noninflammatory disorders of vagina
CPT/HCPCS: 36000; 36415; 74176; 80053; 80307; 81001; 83690; 83735; 84443; 84484; 84703; 85025; 87086; 87210; 87491; 87591; 96365; 96366; 96374; 96375; 99285; J0696; J1885; J2405; J3480; A9270-GY

== ENCOUNTER 2020-10-18 10:58 | Emergency (ER) | payer BC ==
--- NOTE | 2020-10-18 11:00 | ERPHSYRPT ---
- History of Present Illness Time Seen by Provider: 10/18/20 11:00 Historian: patient Exam Limitations: no limitations Physician History: This is a 20-year-old white female who had a [place] presents with 2-day history of initial nausea and vomiting followed by lower abdominal pain and sore throat. Patient patient also states that she has a history of endometriosis. She also has a history of ruptured ovarian cyst. Her current pain feels different than those other 2 entities. She has had no diarrhea. She has no chest pain. She has no shortness of breath. She had no fevers and no cough. There are no other individuals that she has come in contact with that have similar symptoms. Patient denies dysuria. She denies hematuria. She has had no abnormal vaginal discharge. Timing/Duration: day(s) (2) Activities at Onset: none Quality: burning, sharpness Abdominal Pain Onset Location: RLQ, LLQ, suprapubic Pain Radiation: no radiation Severity of Pain-Max: moderate Severity of Pain-Current: moderate Modifying Factors: Improves With: vomiting Associated Symptoms: loss of appetite, nausea, vomiting, No diarrhea Previous symptoms: no prior history Allergies/Adverse Reactions: acetaminophen [From [place]] Allergy (Verified 10/18/20 11:14) codeine Allergy (Verified 10/18/20 11:14) Hives hydrocodone [From [place]] Allergy (Verified 10/18/20 11:14) Home Medications: Ethinyl Estradiol/Drospirenone [[place] 3 mg-0.02 mg Tablet] 1 tab PO DAILY 10/18/20 [History] Hx Tetanus, Diphtheria Vaccination/Date Given: Yes Hx Influenza Vaccination/Date Given: Yes Hx Pneumococcal Vaccination/Date Given: No Travel Risk - International Travel Have you traveled outside of the country in past 3 weeks: No - Coronavirus Screening Are you exhibiting any of the following symptoms?: No Close contact with a COVID-19 positive Pt in past 14-21 Days: No - Review of Systems Constitutional: No Symptoms Eyes: No Symptoms Ears, Nose, & Throat: No Symptoms Respiratory: No Symptoms Cardiac: No Symptoms, No Chest Pain Abdominal/Gastrointestinal: Abdominal Pain, Nausea, Vomiting, No Diarrhea, No Constipation Genitourinary Symptoms: No Symptoms Musculoskeletal: No Symptoms Skin: No Symptoms Neurological: No Symptoms Psychological: No Symptoms Endocrine: No Symptoms Hematologic/Lymphatic: No Symptoms Immunological/Allergic: No Symptoms All Other Systems: Reviewed and Negative - Past Medical History Pertinent Past Medical History: Yes Neurological History: No Pertinent History ENT History: No Pertinent History Cardiac History: No Pertinent History Respiratory History: No Pertinent History Endocrine Medical History: No Pertinent History Musculoskeletal History: Fractures GI Medical History: No Pertinent History History: No Pertinent History Psycho-Social History: No Pertinent History Female Reproductive Disorders: Endometriosis Other Medical History: fx left ankle, dehydration, ovarian cysts - Past Surgical History Past Surgical History: Yes Neuro Surgical History: No Pertinent History Cardiac: No Pertinent History Respiratory: No Pertinent History Gastrointestinal: Appendectomy Genitourinary: No Pertinent History Musculoskeletal: No Pertinent History Female Surgical History: No Pertinent History Other Surgical History: wisdom teeth removed - Social History Smoking Status: Never smoker Exposure to second hand smoke: No Drug Use: none Patient Lives Alone: No - Nursing Vital Signs Nursing Vital Signs: Initial Vital Signs Temperature 97.6 F 10/18/20 11:04 Pulse Rate 60 10/18/20 11:04 Blood Pressure 160/106 10/18/20 11:04 O2 Sat by Pulse Oximetry 99 10/18/20 11:04 Pain Scale Pain Intensity 8 - Physical Exam General Appearance: no apparent distress, alert, anxiety Eye Exam: PERRL/EOMI, eyes nml inspection Ears, Nose, Throat Exam: normal ENT inspection, moist mucous membranes Neck Exam: normal inspection, non-tender, supple, full range of motion Respiratory Exam: normal breath sounds, lungs clear, airway intact, No chest tenderness, No respiratory distress Cardiovascular Exam: regular rate/rhythm, normal heart sounds, normal peripheral pulses Gastrointestinal/Abdomen Exam: soft, normal bowel sounds, tenderness, guarding, No rebound Pelvic Exam: not done Rectal Exam: not done Back Exam: normal inspection, normal range of motion, No CVA tenderness, No vertebral tenderness Extremity Exam: normal inspection, normal range of motion, pelvis stable Neurologic Exam: alert, oriented x 3, cooperative, flotation tender helper II-XII nml as tested, normal mood/affect, nml cerebellar function, nml station & gait, sensation nml Skin Exam: normal color, warm, dry Lymphatic Exam: No adenopathy SpO2 Interpretation: normal O2 Delivery: Room Air - Course Nursing assessment & vital signs reviewed: Yes Ordered Tests: Active Orders 24 hr Category Date Time Status IV Insertion STAT Care 10/18/20 11:12 Active ABDOMEN AND PELVIS W/0 CONTRAS [CT] Stat Exams 10/18/20 11:13 Completed AMYLASE Stat Lab 10/18/20 11:23 Completed CBC W DIFF Stat Lab 10/18/20 11:23 Completed CMP Stat Lab 10/18/20 11:23 Completed HCG,QUALITATIVE URINE Stat Lab 10/18/20 11:14 Completed LIPASE Stat Lab 10/18/20 11:23 Completed Lactic Acid Stat Lab 10/18/20 11:12 Completed UA W/RFX UR CULTURE Stat Lab 10/18/20 11:14 Completed Medication Summary Generic Name Dose Route Start Last Admin Trade Name Freq PRN Reason Stop Dose Admin Sodium Chloride 1,000 mls @ 999 mls/hr 10/18/20 12:05 10/18/20 12:13 Sodium Chloride 0.9% 1000 Ml IV 10/18/20 13:05 999 mls/hr .Q1H1M STA Administration Discontinued Medications Generic Name Dose Route Start Last Admin Trade Name Freq PRN Reason Stop Dose Admin Diphenhydramine HCl 25 mg 10/18/20 11:25 10/18/20 11:27 Benadryl 50 Mg/Ml IV 10/18/20 11:26 25 mg STAT ONE Administration Diphenhydramine HCl Confirm 10/18/20 11:26 Benadryl 50 Mg/Ml Administered 10/18/20 11:27 Dose 50 mg .ROUTE .STK-MED ONE Sodium Chloride 1,000 mls @ 999 mls/hr 10/18/20 11:12 10/18/20 12:19 Sodium Chloride 0.9% 1000 Ml IV 10/18/20 12:12 Infused .Q1H1M STA Infusion Sodium Chloride Confirm 10/18/20 11:15 Sodium Chloride 0.9% 1000 Ml Administered 10/18/20 11:16 Dose 1,000 mls @ ud .ROUTE .STK-MED ONE Sodium Chloride Confirm 10/18/20 12:11 Sodium Chloride 0.9% 1000 Ml Administered 10/18/20 12:12 Dose 1,000 mls @ ud .ROUTE .STK-MED ONE Ketorolac Tromethamine 30 mg 10/18/20 12:05 10/18/20 12:13 Toradol 30 Mg Injection IV 10/18/20 12:06 30 mg STAT ONE Administration Ketorolac Tromethamine Confirm 10/18/20 12:11 Toradol 30 Mg Injection Administered 10/18/20 12:12 Dose 30 mg .ROUTE .STK-MED ONE Morphine Sulfate 2 mg 10/18/20 11:12 10/18/20 11:25 Morphine Sulfate 2 Mg Inj IV 10/18/20 11:13 Not Given STAT ONE Morphine Sulfate Confirm 10/18/20 11:15 Morphine Sulfate 2 Mg Inj Administered 10/18/20 11:16 Dose 2 mg .ROUTE .STK-MED ONE Ondansetron HCl 4 mg 10/18/20 11:12 10/18/20 11:19 Zofran 4 Mg/2 Ml Vial IV 10/18/20 11:13 4 mg STAT ONE Administration Ondansetron HCl Confirm 10/18/20 11:15 Zofran 4 Mg/2 Ml Vial Administered 10/18/20 11:16 Dose 4 mg .ROUTE .STK-MED ONE Lab/Rad Data: Laboratory Result Diagrams 10/18/20 11:23 10/18/20 11:23 Laboratory Results 10/18/20 10/18/20 10/18/20 Range/Units 11:23 11:23 11:14 WBC 8.2 (4.0-10.5) K/mm3 RBC 5.35 (4.1-5.4) M/mm3 Hgb 15.5 (12.0-16.0) gm/dl Hct 46.0 (35-47) % MCV 86.0 (78-100) fl MCH 29.0 (26-32) pg MCHC 33.7 (32-36) g/dl RDW 12.3 (11.5-14.0) % Plt Count 283 (150-450) K/mm3 MPV 9.7 (7.5-11.0) fl Gran % 73.4 H (36.0-66.0) % Eos # (Auto) 0.02 (0-0.5) Absolute Lymphs (auto) 1.66 (1.0-4.6) Absolute Monos (auto) 0.48 (0.0-1.3) Lymphocytes % 20.3 L (24.0-44.0) % Monocytes % 5.9 (0.0-12.0) % Eosinophils % 0.2 (0.00-5.0) % Basophils % 0.2 (0.0-0.4) % Absolute Granulocytes 6.00 (1.4-6.9) Basophils # 0.02 (0-0.4) Sodium 139 (137-145) mmol/L Potassium 3.4 L (3.5-5.1) mmol/L Chloride 101 (98-107) mmol/L Carbon Dioxide 25 (22-30) mmol/L Anion Gap 16.6 H (5-15) MEQ/L BUN 16 (7-17) mg/dL Creatinine 1.09 H (0.52-1.04) mg/dL Estimated GFR > 60.0 ML/MIN Glucose 125 H (74-106) mg/dL Lactic Acid (0.4-2.0) Calcium 9.9 (8.4-10.2) mg/dL Total Bilirubin 0.70 (0.2-1.3) mg/dL AST 34 (14-36) U/L ALT 30 (0-35) U/L Alkaline Phosphatase 57 (38-126) U/L Serum Total Protein 8.6 H (6.3-8.2) g/dL Albumin 5.1 H (3.5-5.0) g/dL Amylase 99 (30-110) U/L Lipase 128 (23-300) U/L Urine Color (YELLOW) Urine Appearance (CLEAR) Urine pH (5-6) Ur Specific [place] (1.005-1.025) Urine Protein (Negative) Urine Ketones (NEGATIVE) Urine Blood (0-5) [place]/ul Urine Nitrite (NEGATIVE) Urine Bilirubin (NEGATIVE) Urine Urobilinogen (0-1) mg/dL Ur Leukocyte Esterase (NEGATIVE) Urine WBC (Auto) (0-5) /HPF Urine RBC (Auto) (0-2) /HPF U Hyaline Cast (Auto) (0-2) /LPF U Epithel Cells (Auto) (FEW) /HPF Urine Bacteria (Auto) (NEGATIVE) /HPF Urine Mucus (Auto) (NEGATIVE) /HPF Urine Culture Reflexed (NO) Urine Glucose (NEGATIVE) mg/dL Urine HCG, Qual NEGATIVE (Negative) 10/18/20 10/18/20 Range/Units 11:14 11:12 WBC (4.0-10.5) K/mm3 RBC (4.1-5.4) M/mm3 Hgb (12.0-16.0) gm/dl Hct (35-47) % MCV (78-100) fl MCH (26-32) pg MCHC (32-36) g/dl RDW (11.5-14.0) % Plt Count (150-450) K/mm3 MPV (7.5-11.0) fl Gran % (36.0-66.0) % Eos # (Auto) (0-0.5) Absolute Lymphs (auto) (1.0-4.6) Absolute Monos (auto) (0.0-1.3) Lymphocytes % (24.0-44.0) % Monocytes % (0.0-12.0) % Eosinophils % (0.00-5.0) % Basophils % (0.0-0.4) % Absolute Granulocytes (1.4-6.9) Basophils # (0-0.4) Sodium (137-145) mmol/L Potassium (3.5-5.1) mmol/L Chloride (98-107) mmol/L Carbon Dioxide (22-30) mmol/L Anion Gap (5-15) MEQ/L BUN (7-17) mg/dL Creatinine (0.52-1.04) mg/dL Estimated GFR ML/MIN Glucose (74-106) mg/dL Lactic Acid 2.5 H (0.4-2.0) Calcium (8.4-10.2) mg/dL Total Bilirubin (0.2-1.3) mg/dL AST (14-36) U/L ALT (0-35) U/L Alkaline Phosphatase (38-126) U/L Serum Total Protein (6.3-8.2) g/dL Albumin (3.5-5.0) g/dL Amylase (30-110) U/L Lipase (23-300) U/L Urine Color ROBERT (YELLOW) Urine Appearance SLIGHTLY CLOUDY (CLEAR) Urine pH 6.0 (5-6) Ur Specific [place] 1.028 (1.005-1.025) Urine Protein >=500 (Negative) Urine Ketones NEGATIVE (NEGATIVE) Urine Blood NEGATIVE (0-5) [place]/ul Urine Nitrite NEGATIVE (NEGATIVE) Urine Bilirubin NEGATIVE (NEGATIVE) Urine Urobilinogen 2 (0-1) mg/dL Ur Leukocyte Esterase NEGATIVE (NEGATIVE) Urine WBC (Auto) 3-5 (0-5) /HPF Urine RBC (Auto) 3-5 (0-2) /HPF U Hyaline Cast (Auto) 0-2 (0-2) /LPF U Epithel Cells (Auto) FEW (FEW) /HPF Urine Bacteria (Auto) NONE (NEGATIVE) /HPF Urine Mucus (Auto) MANY (NEGATIVE) /HPF Urine Culture Reflexed NO (NO) Urine Glucose NEGATIVE (NEGATIVE) mg/dL Urine HCG, Qual (Negative) - Progress Progress: improved, pain not gone completely, re-examined Progress Note: 10/18/20 13:01 ct abd/pelvis s contrast: no acute process Counseled pt/family regarding: lab results, diagnosis, need for follow-up, rad results - Departure Departure Disposition: Home Clinical Impression: Abdominal pain Condition: Stable Critical Care Time: No Referrals: GERTRUDE FERNANDEZ [Primary Care Provider] - Additional Instructions: Drink plenty of fluids. Take ibuprofen for pain relief. Contact your primary care doctor or [facility] for further management of your pain and further evaluation. Prescriptions: Ondansetron ODT 4 MG [Zofran Odt 4 mg] 4 mg PO Q6H PRN PRN #10 tab.rapdis PRN Reason: Vomiting
[2020-10-18] MEDS ORDERED: MORPHINE SULFATE 2 MG INJ IV ONE (11:12)
[2020-10-18] MEDS ORDERED: Sodium Chloride 0.9% 1000 ML 1,000 ML IV STA ×2 (11:12→12:05)
[2020-10-18] MEDS ORDERED: Zofran 4 MG/2 ML VIAL IV ONE (11:12)
[2020-10-18 11:14] VITALS: O2SAT 99
[2020-10-18] MEDS ORDERED: MORPHINE SULFATE 2 MG INJ ONE (11:15)
[2020-10-18] MEDS ORDERED: Zofran 4 MG/2 ML VIAL ONE (11:15)
[2020-10-18] MEDS ORDERED: Sodium Chloride 0.9% 1000 ML 1,000 ML ONE ×2 (11:15→12:11)
[2020-10-18 11:25] LABS: BASOPHIL % 0.2 % (0.0-0.4); Basophil (Absolute #) 0.02 (0-0.4); Eosinophil % 0.2 % (0.00-5.0); Eosinophil (Absolute #) 0.02 (0-0.5); Hemoglobin 15.5 gm/dl (12.0-16.0); Lymphocyte (Absolute #) 1.66 (1.0-4.6); Lymphocytes % 20.3 % (24.0-44.0); Mean Corpuscular Hgb Concent. 33.7 g/dl (32-36); Mean Platelet Volume 9.7 fl (7.5-11.0); Monocyte (Absolute #) 0.48 (0.0-1.3); Monocytes % 5.9 % (0.0-12.0); Neutrophil % 73.4 % (36.0-66.0); Platelet Count 283 K/mm3 (150-450); Red Blood Count 5.35 M/mm3 (4.1-5.4); Red Cell Distribution Width 12.3 % (11.5-14.0); White Blood Count 8.2 K/mm3 (4.0-10.5)
[2020-10-18] MEDS ORDERED: BENADRYL 50 MG/ML IV ONE (11:25)
[2020-10-18] MEDS ORDERED: BENADRYL 50 MG/ML ONE (11:26)
[2020-10-18 11:32] LABS: Appearance SLIGHTLY CLOUDY (CLEAR); Bilirubin NEGATIVE (NEGATIVE); Blood NEGATIVE Ery/ul (0-5); Epithelial Cells FEW /HPF (FEW); Glucose NEGATIVE (NEGATIVE); Hyaline Casts 0-2 /LPF (0-2); Ketones NEGATIVE (NEGATIVE); Leukocyte Esterase NEGATIVE (NEGATIVE); Mucus MANY /HPF (NEGATIVE); Nitrite NEGATIVE (NEGATIVE); Protein,Urine Dip >=500 (Negative); Specific Gravity 1.028 (1.005-1.025); Urobilinogen 2 mg/dL (0-1)
[2020-10-18 11:36] LABS: ALBUMIN 5.1 g/dL (3.5-5.0); ALKALINE PHOSPHATASE 57 U/L (38-126); AMYLASE 99 U/L (30-110); ANION GAP 16.6 MEQ/L (5-15); BLOOD UREA NITROGEN 16 mg/dL (7-17); CHLORIDE 101 mmol/L (98-107); Calcium 9.9 mg/dL (8.4-10.2); Carbon Dioxide 25 mmol/L (22-30); Creatinine 1 1.09 mg/dL (0.52-1.04); EST GLOMERULAR FILTRATION RATE > 60.0 ML/MIN; Glucose 125 mg/dL (74-106); LIPASE 128 U/L (23-300); Potassium 3.4 mmol/L (3.5-5.1); SGOT/AST 34 U/L (14-36); SGPT/ALT 30 U/L (0-35); SODIUM 139 mmol/L (137-145); Total Protein 8.6 g/dL (6.3-8.2)
[2020-10-18] MEDS ORDERED: TORAdol 30 mg Injection IV ONE (12:05)
[2020-10-18] MEDS ORDERED: TORAdol 30 mg Injection ONE (12:11)
--- NOTE | 2020-10-18 12:51 | XRAY ---
Indication: Abdomen pain 3 days. Nausea, vomiting, and dehydration. Multiple contiguous axial images obtained through the abdomen and pelvis without contrast. Comparison: June 22, 2020. Lung bases remain clear. Heart is not enlarged. Noncontrasted stomach and bowel loops remain nonobstructed. Previous appendectomy. No free fluid/air. Remaining liver, gallbladder, pancreas, spleen, adrenal glands, kidneys, ureters, bladder, uterus, and aorta appear unremarkable for noncontrast exam. Osseous structures intact. Impression: Continued negative CT abdomen/pelvis without contrast exam.
[2020-10-18 13:16] VITALS: BP 145/99; PULSE 79
== END 2020-10-18 13:30 | disposition home or self-care (01) ==
LOC: ED 10:58
DX: R10.9 Unspecified abdominal pain (principal)
CPT/HCPCS: 36000; 36415; 74176; 80053; 81001; 82150; 83605; 83690; 84703; 85025; 96360; 96374; 96375; 99284; J1200; J1885; J2270; J2405

== ENCOUNTER 2021-01-16 06:42 | Day surgery (SDC) | payer BC ==
[~2021-01-16 06:42] MED LIST: Lactated Ringers 1,000 ML IV SCH; Sensorcaine 0.25% 10 ML ONE
[2021-01-16] MEDS ORDERED: Lactated Ringers 1,000 ML IV ONE ×2 (06:53→09:41)
[2021-01-16] MEDS ORDERED: Heparin 5000 UNITS/0.5 ML (HIGH RISK MED) SQ SCH (07:00)
[2021-01-16] MEDS ORDERED: Transderm Scop 1.5MG Patch TOP ONE (07:42)
[2021-01-16] MEDS ORDERED: Transderm Scop 1.5MG Patch ONE (07:45)
[2021-01-16] MEDS ORDERED: Zofran 4 MG/2 ML VIAL ONE (08:17)
[2021-01-16] MEDS ORDERED: Versed 2 MG/2 ML Injection ONE (08:17)
[2021-01-16] MEDS ORDERED: DIPRIVAN 200 MG/20 ML IV ONE (08:17)
[2021-01-16] MEDS ORDERED: Zemuron 100 MG/10 ML ONE (08:17)
[2021-01-16] MEDS ORDERED: TORAdol 30 mg Injection ONE (08:17)
[2021-01-16] MEDS ORDERED: Decadron 4 MG INJ ONE (08:17)
[2021-01-16] MEDS ORDERED: SUBLIMAZE 100 MCG/2 ML ONE ×2 (08:18→09:36)
[2021-01-16] MEDS ORDERED: BRIDION 200MG/2ML IV ONE (09:06)
[2021-01-16] MEDS ORDERED: Hydromorphone 1 mg/ml Injection ONE (09:36)
[2021-01-16] MEDS ORDERED: Compazine 10 MG/2 ML ONE (09:37)
[2021-01-16 09:43] LABS: Appearance CLEAR (CLEAR); Bilirubin NEGATIVE (NEGATIVE); Blood NEGATIVE Ery/ul (0-5); Glucose NEGATIVE (NEGATIVE); Ketones NEGATIVE (NEGATIVE); Leukocyte Esterase NEGATIVE (NEGATIVE); Nitrite NEGATIVE (NEGATIVE); Protein,Urine Dip NEGATIVE (Negative); Urobilinogen NEGATIVE mg/dL (0-1)
[2021-01-16 10:09] LABS: Bacteria RARE /HPF (NEGATIVE); Epithelial Cells FEW /HPF (FEW); RBC 0-2 /HPF (0-2); WBC 0-2 /HPF (0-5)
[2021-01-16 11:30] VITALS: BP 94/36; PULSE 74; O2SAT 98
--- NOTE | 2021-01-17 08:37 | OP ---
SURGERY DATE/TIME: 01/16/2021 0845 PREOPERATIVE DIAGNOSIS: Chronic pelvic pain with clinical endometriosis. POSTOPERATIVE DIAGNOSIS: Chronic pelvic pain with clinical endometriosis. PROCEDURE: Diagnostic laparoscopy. SURGEON: Juan Erazo D.O. YARN WINDER: Krzysztof Castro nuclear chemistry technician. ANESTHESIA: General. ESTIMATED BLOOD LOSS: Minimal. COMPLICATIONS: None. INDICATIONS: The risks, benefits, indications and alternatives of the procedure were reviewed with the patient prior to procedure. The patient understood the risk of infection, bleeding, bowel injury, bladder injury, ureteral injury, uterine perforation, pelvic infection, thromboembolic disorder associated with the surgery however desires to have this surgery as a possible means to alleviate her current medical condition. DESCRIPTION OF PROCEDURE AND FINDINGS: At this point the patient is taken to the operating room, given general sedation, placed in the supine position where she was prepped and draped in the usual sterile fashion. A 5 mm skin incision was made approximately 1 cm above the umbilical fold where a 5 mm trocar and sleeve were advanced under direct visualization where pneumoperitoneum was obtained with 4 liters of CO2 gas. An additional incision was made in the left lower quadrant region where 5 mm trocar and sleeve were advanced under direct visualization where there were no complications that were met upon entry into the abdominal wall. From this point visualization of the abdominal region and the pelvic region appeared to be within normal limits with no endometriotic implants that were noted in the anterior-posterior cul-de-sac. The ovaries appeared to be within normal limits as well as the fallopian tube. There were no lesions that were noted anywhere in the pelvic region nor in the abdominal region. At this point after complete visualization of no gross endometriotic implants that were noted from this point all instruments were removed from the patient's abdominal region and the incisions were closed with 4-0 Monocryl suture. The patient was then taken out of anesthesia and was then taken to the recovery room in stable condition. All instruments and laps were accounted for x2.
== END 2021-01-16 11:15 | disposition home or self-care (01) ==
LOC: SDC 06:42
PROVIDERS: ATTEND Obstetrics & Gynecology
DX: N80.9 Endometriosis, unspecified (principal); R10.2 Pelvic and perineal pain
CPT/HCPCS: 81001; 84703; 87086; J1100; J1170; J1644; J1885; J2250; J2405; J2704; J3010; A9270-GY

== ENCOUNTER 2021-09-20 03:45 | Observation (INO) | payer BC ==
[2021-09-20] MEDS ORDERED: Sodium Chloride 0.9% 1000 ML 1,000 ML IV STA (04:12)
[2021-09-20] MEDS ORDERED: Sodium Chloride 0.9% 1000 ML 1,000 ML ONE (04:21)
[2021-09-20 04:49] LABS: Absolute Neutrophil Ct (ANC) 9.34 (1.4-6.9); Basophil (Absolute #) 0.03 (0-0.4); Eosinophil % 0.3 % (0.00-5.0); Eosinophil (Absolute #) 0.04 (0-0.5); Hematocrit 46.5 % (35-47); Hemoglobin 16.1 gm/dl (12.0-16.0); Lymphocyte (Absolute #) 2.09 (1.0-4.6); Lymphocytes % 16.6 % (24.0-44.0); Mean Cell Volume 86.6 fl (78-100); Mean Corpuscular Hgb Concent. 34.6 g/dl (32-36); Mean Platelet Volume 10.1 fl (7.5-11.0); Monocyte (Absolute #) 1.06 (0.0-1.3); Monocytes % 8.4 % (0.0-12.0); Neutrophil % 74.5 % (36.0-66.0); Platelet Count 286 K/mm3 (150-450); Red Blood Count 5.37 M/mm3 (4.1-5.4); Red Cell Distribution Width 12.3 % (11.5-14.0); White Blood Count 12.6 K/mm3 (4.0-10.5)
--- NOTE | 2021-09-20 05:11 | ERPHSYRPT ---
- History of Present Illness Time Seen by Provider: 09/20/21 04:00 Source: patient Exam Limitations: no limitations Patient Subjective Stated Complaint: pt states she has been having vomiting for approx a week. states she has been to 2 other er's and has continued to have vomiting and not able to keep anything down Triage Nursing Assessment: pt alert and oriented, answers questions approp. pt ambualtory with steady gait noted. respirations nonlabored. abd soft and nontender. bowel sounds presentx4. small amount of emesis upon arrival to er. Physician History: Patient is 21-year-old female presents to emergency department for evaluation of nausea and vomiting. Patient has a history of cyclic vomiting syndrome. P jennie has been to 2 other emergency departments in the past week. Patient was diagnosed with cyclic vomiting syndrome. Patient currently on Zofran and Bentyl and is wearing a scopolamine patch. Patient's last dose of Zofran and Bentyl was at 3 PM today. Patient complains of mild diffuse abdominal soreness which she attributes to vomiting continuously for the past week. No trauma. No fever. No diarrhea. No rash. Patient states her urine is concentrated as she is unable to tolerate fluids. Symptoms are constant. Symptoms are moderate in intensity. No specific worsening improving factors. Patient sees Dr. Shen. Patient currently has an appointment scheduled with Dr. Shen this week. Patient denies the use of cannabis. Significant other at bedside. She voices no other complaints or concerns at this time Timing/Duration: week(s) Severity: moderate Modifying Factors: Improves With: nothing Associated Symptoms: No shortness of breath, No diaphoresis, No cough, No chill s, No chest pain, No fever, No rash, No syncope, No seizure, No weakness Allergies/Adverse Reactions: codeine Allergy (Verified 09/20/21 04:09) Hives diff breathing hydrocodone [From [place]] Allergy (Verified 09/20/21 04:09) Hives diff breathing Home Medications: Ethinyl Estradiol/Drospirenone [Loryna 3 mg-0.02 mg Tablet] 1 tab PO DAILY 10/18/20 [History] Ibuprofen [Advil] 200 mg PO DAILY PRN 01/16/21 [History] Hx Tetanus, Diphtheria Vaccination/Date Given: Yes Hx Influenza Vaccination/Date Given: No Hx Pneumococcal Vaccination/Date Given: No Immunizations Up to Date: Yes Travel Risk - International Travel Have you traveled outside of the country in past 3 weeks: No - Coronavirus Screening Are you exhibiting any of the following symptoms?: Yes Symptoms: Vomiting/Diarrhea Close contact with a COVID-19 positive Pt in past 14-21 Days: No - Vaccine Status Have you recieved a Covid-19 vaccination: No - Review of Systems Constitutional: No Symptoms, No Fever, No Chills Eyes: No Symptoms Ears, Nose, & Throat: No Symptoms Respiratory: No Symptoms, No Cough, No Dyspnea Cardiac: No Symptoms, No Chest Pain, No Edema, No Syncope Abdominal/Gastrointestinal: No Symptoms, No Abdominal Pain, No Nausea, No Vomiting, No Diarrhea Genitourinary Symptoms: No Symptoms, No Dysuria Musculoskeletal: No Symptoms, No Back Pain, No Neck Pain Skin: No Symptoms, No Rash Neurological: No Symptoms, No Dizziness, No Focal Weakness, No Sensory Changes Psychological: No Symptoms Endocrine: No Symptoms Hematologic/Lymphatic: No Symptoms Immunological/Allergic: No Symptoms All Other Systems: Reviewed and Negative - Past Medical History Pertinent Past Medical History: Yes Neurological History: No Pertinent History ENT History: No Pertinent History Cardiac History: No Pertinent History Respiratory History: No Pertinent History Endocrine Medical History: No Pertinent History Musculoskeletal History: Fractures GI Medical History: No Pertinent History, GERD History: No Pertinent History Psycho-Social History: No Pertinent History Female Reproductive Disorders: Endometriosis Other Medical History: fx left ankle, dehydration, ovarian cysts. cyclic vomiting syndrome - Past Surgical History Past Surgical History: Yes Neuro Surgical History: No Pertinent History Cardiac: No Pertinent History Respiratory: No Pertinent History Gastrointestinal: Appendectomy Genitourinary: No Pertinent History Musculoskeletal: No Pertinent History Female Surgical History: No Pertinent History Other Surgical History: wisdom teeth removed, diagnostic laparoscopy - Social History Smoking Status: Never smoker Exposure to second hand smoke: No Drug Use: none Patient Lives Alone: No - Female History Hx Last Menstrual Period: current Hx Now: No - Nursing Vital Signs Nursing Vital Signs: Initial Vital Signs Temperature 97.8 F 09/20/21 03:50 Pulse Rate 82 09/20/21 03:50 Respiratory Rate 16 09/20/21 03:50 Blood Pressure 142/90 09/20/21 03:50 O2 Sat by Pulse Oximetry 98 09/20/21 03:50 Pain Scale Pain Intensity 0 - Physical Exam General Appearance: no apparent distress, alert Eye Exam: PERRL/EOMI, eyes nml inspection Ears, Nose, Throat Exam: normal ENT inspection, TMs normal, pharynx normal, moist mucous membranes Neck Exam: normal inspection, non-tender, supple, full range of motion Respiratory Exam: normal breath sounds, lungs clear, airway intact, No respiratory distress Cardiovascular Exam: regular rate/rhythm, normal heart sounds, normal peripheral pulses Gastrointestinal/Abdomen Exam: soft, normal bowel sounds, No tenderness, No mass Back Exam: normal inspection, normal range of motion, No CVA tenderness, No vertebral tenderness Extremity Exam: normal inspection, normal range of motion, pelvis stable Neurologic Exam: alert, oriented x 3, cooperative, normal mood/affect, nml cerebellar function, nml station & gait, sensation nml, No motor deficits Skin Exam: normal color, warm, dry, No rash Lymphatic Exam: No adenopathy SpO2 Interpretation: normal SpO2: 98 O2 Delivery: Room Air - Course Nursing assessment & vital signs reviewed: Yes Ordered Tests: Active Orders 24 hr Category Date Time Status CBC W DIFF Stat Lab 09/20/21 04:45 Completed CMP Stat Lab 09/20/21 04:45 Completed HCG,QUALITATIVE URINE Stat Lab 09/20/21 05:13 Completed LIPASE Stat Lab 09/20/21 04:45 Completed TROPONIN Stat Lab 09/20/21 04:45 Completed UA W/RFX CULTURE Stat Lab 09/20/21 Results Urine Triage Profile Stat Lab 09/20/21 05:13 Completed Transfer Order Routine Transfer 09/20/21 Ordered Medication Summary Generic Name Dose Route Start Last Admin Trade Name Freq PRN Reason Stop Dose Admin Dextrose/Sodium Chloride 1,000 mls @ 100 mls/hr 09/20/21 06:15 09/20/21 06:34 Dextrose 5% -0.45 Nacl 1000 Ml IV 10/20/21 06:14 100 mls/hr .Q10H NANI Administration Discontinued Medications Generic Name Dose Route Start Last Admin Trade Name Freq PRN Reason Stop Dose Admin Droperidol 2.5 mg 09/20/21 04:50 09/20/21 05:03 Droperidol 5 Mg/2 Ml Vial IV 09/20/21 04:51 2.5 mg STAT ONE Administration Droperidol Confirm 09/20/21 05:02 Droperidol 5 Mg/2 Ml Vial Administered 09/20/21 05:03 Dose 5 mg .ROUTE .STK-MED ONE Sodium Chloride 1,000 mls @ 999 mls/hr 09/20/21 04:12 09/20/21 06:46 Sodium Chloride 0.9% 1000 Ml IV 09/20/21 05:12 Infused .Q1H1M STA Infusion Sodium Chloride Confirm 09/20/21 04:21 Sodium Chloride 0.9% 1000 Ml Administered 09/20/21 04:22 Dose 1,000 mls @ ud .ROUTE .STK-MED ONE Lab/Rad Data: Laboratory Result Diagrams 09/20/21 04:45 09/20/21 04:45 Laboratory Results 09/20/21 09/20/21 09/20/21 Range/Units Unknown 05:13 05:13 WBC (4.0-10.5) K/mm3 RBC (4.1-5.4) M/mm3 Hgb (12.0-16.0) gm/dl Hct (35-47) % MCV (78-100) fl MCH (26-32) pg MCHC (32-36) g/dl RDW (11.5-14.0) % Plt Count (150-450) K/mm3 MPV (7.5-11.0) fl Gran % (36.0-66.0) % Eos # (Auto) (0-0.5) Absolute Lymphs (auto) (1.0-4.6) Absolute Monos (auto) (0.0-1.3) Lymphocytes % (24.0-44.0) % Monocytes % (0.0-12.0) % Eosinophils % (0.00-5.0) % Basophils % (0.0-0.4) % Absolute Granulocytes (1.4-6.9) Basophils # (0-0.4) Sodium (137-145) mmol/L Potassium (3.5-5.1) mmol/L Chloride (98-107) mmol/L Carbon Dioxide (22-30) mmol/L Anion Gap (5-15) MEQ/L BUN (7-17) mg/dL Creatinine (0.52-1.04) mg/dL Estimated GFR ML/MIN Glucose (74-106) mg/dL Calcium (8.4-10.2) mg/dL Total Bilirubin (0.2-1.3) mg/dL AST (14-36) U/L ALT (0-35) U/L Alkaline Phosphatase (38-126) U/L Troponin I (0.000-0.034) ng/mL Serum Total Protein (6.3-8.2) g/dL Albumin (3.5-5.0) g/dL Lipase (23-300) U/L Urinalys Dipstick Clnc Pending Urine Color YELLOW (YELLOW) Urine Appearance CLEAR (CLEAR) Urine pH 6.0 (5-6) Ur Specific [place] >=1.030 (1.005-1.025) POC Urine Protein Conf 100 (Negative) Urine Ketones >=160 (NEGATIVE) Urine Nitrite NEGATIVE (NEGATIVE) Urine Bilirubin SMALL (NEGATIVE) Urine Urobilinogen 4 (0-1) mg/dL Urine Leukocytes NEGATIVE (NEGATIVE) Urine WBC (Auto) 0-2 (0-5) /HPF Urine RBC (Auto) 3-5 (0-2) /HPF U Hyaline Cast (Auto) 0-2 (0-2) /LPF U Epithel Cells (Auto) RARE (FEW) /HPF Urine Bacteria (Auto) NONE SEEN (NEGATIVE) /HPF Urine RBC MODERATE (0-5) [place]/ul Other Casts (Auto) NEGATIVE (NEGATIVE) /LPF Urine Mucus (Auto) SLIGHT (NEGATIVE) /HPF Ur Culture Indicated? NO Urine Glucose NEGATIVE (NEGATIVE) mg/dL Urine HCG, Qual NEGATIVE (Negative) Urine Opiates Level NEGATIVE (NEGATIVE) Ur Methadone NEGATIVE (NEGATIVE) Urine Barbiturates NEGATIVE (NEGATIVE) Ur Phencyclidine (PCP) NEGATIVE (NEGATIVE) Urine Amphetamine NEGATIVE (NEGATIVE) U Benzodiazepine Level NEGATIVE (NEGATIVE) Urine Cocaine NEGATIVE (NEGATIVE) Urine Marijuana (THC) NEGATIVE (NEGATIVE) 09/20/21 09/20/21 09/20/21 Range/Units 04:45 04:45 04:45 WBC 12.6 H (4.0-10.5) K/mm3 RBC 5.37 (4.1-5.4) M/mm3 Hgb 16.1 H (12.0-16.0) gm/dl Hct 46.5 (35-47) % MCV 86.6 (78-100) fl MCH 30.0 (26-32) pg MCHC 34.6 (32-36) g/dl RDW 12.3 (11.5-14.0) % Plt Count 286 (150-450) K/mm3 MPV 10.1 (7.5-11.0) fl Gran % 74.5 H (36.0-66.0) % Eos # (Auto) 0.04 (0-0.5) Absolute Lymphs (auto) 2.09 (1.0-4.6) Absolute Monos (auto) 1.06 (0.0-1.3) Lymphocytes % 16.6 L (24.0-44.0) % Monocytes % 8.4 (0.0-12.0) % Eosinophils % 0.3 (0.00-5.0) % Basophils % 0.2 (0.0-0.4) % Absolute Granulocytes 9.34 H (1.4-6.9) Basophils # 0.03 (0-0.4) Sodium 138 (137-145) mmol/L Potassium 3.8 (3.5-5.1) mmol/L Chloride 103 (98-107) mmol/L Carbon Dioxide 20 L (22-30) mmol/L Anion Gap 19.3 H (5-15) MEQ/L BUN 13 (7-17) mg/dL Creatinine 1.04 (0.52-1.04) mg/dL Estimated GFR > 60.0 ML/MIN Glucose 103 (74-106) mg/dL Calcium 10.1 (8.4-10.2) mg/dL Total Bilirubin 1.30 (0.2-1.3) mg/dL AST 22 (14-36) U/L ALT 24 (0-35) U/L Alkaline Phosphatase 77 (38-126) U/L Troponin I < 0.012 (0.000-0.034) ng/mL Serum Total Protein 7.9 (6.3-8.2) g/dL Albumin 4.8 (3.5-5.0) g/dL Lipase 242 (23-300) U/L Urinalys Dipstick Clnc Urine Color (YELLOW) Urine Appearance (CLEAR) Urine pH (5-6) Ur Specific [place] (1.005-1.025) POC Urine Protein Conf (Negative) Urine Ketones (NEGATIVE) Urine Nitrite (NEGATIVE) Urine Bilirubin (NEGATIVE) Urine Urobilinogen (0-1) mg/dL Urine Leukocytes (NEGATIVE) Urine WBC (Auto) (0-5) /HPF Urine RBC (Auto) (0-2) /HPF U Hyaline Cast (Auto) (0-2) /LPF U Epithel Cells (Auto) (FEW) /HPF Urine Bacteria (Auto) (NEGATIVE) /HPF Urine RBC (0-5) [place]/ul Other Casts (Auto) (NEGATIVE) /LPF Urine Mucus (Auto) (NEGATIVE) /HPF Ur Culture Indicated? Urine Glucose (NEGATIVE) mg/dL Urine HCG, Qual (Negative) Urine Opiates Level (NEGATIVE) Ur Methadone (NEGATIVE) Urine Barbiturates (NEGATIVE) Ur Phencyclidine (PCP) (NEGATIVE) Urine Amphetamine (NEGATIVE) U Benzodiazepine Level (NEGATIVE) Urine Cocaine (NEGATIVE) Urine Marijuana (THC) (NEGATIVE) - Progress Progress: improved Progress Note: Laboratory values reviewed. Patient presents with a ketonuria. Patient unable to tolerate p.o. Patient has been vomiting intermittently for approximately 1 week. Patient appears to be hemoconcentrated. Patient received Zofran and droperidol. Patient feels better nausea improved however unable to tolerate p.o. Patient vomited. Case discussed with Dr. Fuller who accepts admission to observation. Admit orders entered. COVID test pending. 09/20/21 06:14 Discussed with .: David Will see patient in: hospital (observation) Counseled pt/family regarding: lab results, diagnosis - Departure Departure Disposition: Observation Clinical Impression: Cyclic vomiting syndrome, Proteinuria, Ketonuria, Nausea & vomiting Condition: Stable Critical Care Time: No Referrals: GERTRUDE SHEN [Primary Care Provider] - Follow up/PCP as directed
[2021-09-20 05:14] LABS: ALBUMIN 4.8 g/dL (3.5-5.0); ALKALINE PHOSPHATASE 77 U/L (38-126); ANION GAP 19.3 MEQ/L (5-15); BLOOD UREA NITROGEN 13 mg/dL (7-17); CHLORIDE 103 mmol/L (98-107); Calcium 10.1 mg/dL (8.4-10.2); Carbon Dioxide 20 mmol/L (22-30); Creatinine 1 1.04 mg/dL (0.52-1.04); EST GLOMERULAR FILTRATION RATE > 60.0 ML/MIN; Glucose 103 mg/dL (74-106); LIPASE 242 U/L (23-300); Potassium 3.8 mmol/L (3.5-5.1); SGOT/AST 22 U/L (14-36); SGPT/ALT 24 U/L (0-35); SODIUM 138 mmol/L (137-145); Total Protein 7.9 g/dL (6.3-8.2)
[2021-09-20 05:21] LABS: Epithelial Cells RARE /HPF (FEW); Hyaline Casts 0-2 /LPF (0-2); Mucus SLIGHT /HPF (NEGATIVE); WBC 0-2 /HPF (0-5)
[2021-09-20 05:22] LABS: Appearance CLEAR (CLEAR); Bilirubin SMALL (NEGATIVE); Glucose NEGATIVE (NEGATIVE)
[2021-09-20 05:25] LABS: Ketones >=160 (NEGATIVE); Nitrite NEGATIVE (NEGATIVE); Protein,Urine Dip 100 (Negative); RBC MODERATE Ery/ul (0-5); Specific Gravity >=1.030 (1.005-1.025); Urobilinogen 4 mg/dL (0-1)
[2021-09-20 05:26] LABS: Bacteria NONE SEEN /HPF (NEGATIVE); Dipstick done @ ? MAIN LAB; Urine Cultured Indicated? NO
[2021-09-20 05:30] LABS: Amphetamine,Urine NEGATIVE (NEGATIVE); Barbiturate,Urine NEGATIVE (NEGATIVE); Benzodiazepine,Urine NEGATIVE (NEGATIVE); Cocaine,Urine NEGATIVE (NEGATIVE); Methadone,Urine NEGATIVE (NEGATIVE); Opiate,Urine NEGATIVE (NEGATIVE); PCP,Urine NEGATIVE (NEGATIVE); THC,Urine NEGATIVE (NEGATIVE)
[2021-09-20] MEDS ORDERED: Dextrose 5% -0.45 NaCl 1000 ML 1,000 ML IV SCH ×2 (06:15→08:42)
[2021-09-20] MEDS ORDERED: Dextrose 5% -0.45 NaCl 1000 ML 1,000 ML IV ONE (06:34)
[2021-09-20 07:32] LABS: INFLUENZA A NEGATIVE (NEGATIVE); INFLUENZA B NEGATIVE (NEGATIVE); RESPIRATORY SYNCTIAL VIRUS NEGATIVE (Negative); SARS-CoV-2 Xpert Express NEGATIVE (NEGATIVE)
[2021-09-20] MEDS ORDERED: Zofran 4 MG/2 ML VIAL IV PRN (08:42)
[2021-09-20] MEDS ORDERED: SUBLIMAZE 100 MCG/2 ML IV ONE (09:40)
[2021-09-20] MEDS: Compazine 10 MG/2 ML IV PRN ×2 (09:50→23:07)
[2021-09-20] MEDS ORDERED: Dextrose 5%-1/4NS IV Soln. 1000 ML 1,000 ML IV SCH (10:30)
--- NOTE | 2021-09-20 11:48 | XRAY ---
Indication: History of cyclic vomiting syndrome. Bodyaches. Elevated WBC. Multiple contiguous axial images obtained through the abdomen and pelvis prior to and following 80 cc Isovue 370 contrast. Comparison: October 18, 2020. Lung bases again clear. Heart not enlarged. Noncontrasted images demonstrates 2 nonobstructing left renal punctate calculi, previously only 1 calculus. No new visceral calcifications/calculi. Noncontrasted stomach and bowel loops nonobstructed. A few jejunal bowel loops are now mildly fluid distended with fluid leveling, ileus versus enteritis. Again previous appendectomy. No free fluid/air. New tampon in situ. Postcontrast images demonstrates normal visceral enhancement and renal excretion. Remaining liver, gallbladder, pancreas, spleen, adrenal glands, kidneys, ureters, bladder, uterus, and aorta are unremarkable. No pathologic retroperitoneal lymphadenopathy. Osseous structures intact. No ventral or inguinal hernias. Impression: 1. 2 nonobstructing left renal micro-calculi. 2. A few fluid distended jejunal bowel loops with fluid leveling, ileus versus enteritis. 3. Remaining CT abdomen/pelvis with and without contrast exam is negative.
[2021-09-20] MEDS: Dextrose 5% -0.45 NaCl 1000 ML 1,000 ML IV SCH (14:48)
[2021-09-20] MEDS: TORAdol 30 mg Injection IV PRN ×2 (15:59→22:34)
[2021-09-20] MEDS ORDERED: Pepcid 20 MG PO PRN (16:43)
[2021-09-20] MEDS ORDERED: ZOFRAN ODT 4 MG PO PRN (16:43)
[2021-09-20] MEDS: PROTONIX 40 MG IV IV SCH (16:49)
[2021-09-20] MEDS: Reglan 10 MG/2 ML IV SCH ×2 (16:52→23:20)
[2021-09-20] MEDS: Zofran 4 MG/2 ML VIAL IV PRN (18:07)
[2021-09-21] MEDS: Dextrose 5% -0.45 NaCl 1000 ML 1,000 ML IV SCH ×3 (01:43→17:24)
[2021-09-21 05:38] LABS: Absolute Neutrophil Ct (ANC) 3.57 (1.4-6.9); Basophil (Absolute #) 0.03 (0-0.4); Eosinophil (Absolute #) 0.31 (0-0.5); Hematocrit 45.1 % (35-47); Hemoglobin 15.7 gm/dl (12.0-16.0); Lymphocyte (Absolute #) 3.01 (1.0-4.6); Lymphocytes % 38.8 % (24.0-44.0); Mean Cell Volume 86.2 fl (78-100); Mean Corpuscular Hgb Concent. 34.8 g/dl (32-36); Mean Platelet Volume 9.7 fl (7.5-11.0); Monocyte (Absolute #) 0.84 (0.0-1.3); Monocytes % 10.8 % (0.0-12.0); Platelet Count 249 K/mm3 (150-450); Red Blood Count 5.23 M/mm3 (4.1-5.4); White Blood Count 7.8 K/mm3 (4.0-10.5)
[2021-09-21 06:04] LABS: ALBUMIN 4.3 g/dL (3.5-5.0); ALKALINE PHOSPHATASE 61 U/L (38-126); AMYLASE 125 U/L (30-110); ANION GAP 12.5 MEQ/L (5-15); BLOOD UREA NITROGEN 9 mg/dL (7-17); CHLORIDE 100 mmol/L (98-107); Calcium 9.4 mg/dL (8.4-10.2); Carbon Dioxide 27 mmol/L (22-30); Creatinine 1 0.93 mg/dL (0.52-1.04); EST GLOMERULAR FILTRATION RATE > 60.0 ML/MIN; Glucose 103 mg/dL (74-106); LIPASE 235 U/L (23-300); Potassium 3.4 mmol/L (3.5-5.1); SGOT/AST 24 U/L (14-36); SGPT/ALT 24 U/L (0-35); SODIUM 136 mmol/L (137-145); Total Protein 7.2 g/dL (6.3-8.2)
[2021-09-21] MEDS: Zofran 4 MG/2 ML VIAL IV PRN ×3 (07:43→17:22)
[2021-09-21] MEDS: TORAdol 30 mg Injection IV PRN ×2 (07:47→17:23)
[2021-09-21] MEDS: Reglan 10 MG/2 ML IV SCH ×4 (07:50→23:58)
[2021-09-21] MEDS ORDERED: Reglan 10 MG/2 ML IV SCH (08:00)
--- NOTE | 2021-09-21 08:56 | XRAY ---
Indication: Ileus. Comparison: CT abdomen/pelvis one day earlier. KUB demonstrates nonspecific nonobstructed bowel gas pattern. Solid organs and osseous structures unremarkable.
--- NOTE | 2021-09-21 10:32 | HP ---
ADMITTED: 09/20/2021 CHIEF COMPLAINT: Nausea and vomiting. HISTORY OF PRESENT ILLNESS: The patient is a 21 y/o WF with a long history of gastrointestinal problems. Had been diagnosed with cyclic vomiting. She had been doing well for the past 8 months when she started having problems recently again. She had been to 2 other Emergency Rooms including admission for 2 days in an outside facility, but she has returned again because she is still having trouble keeping anything down. The patient has previously received fluids for hydration, but sent home again, but she persists to vomit. PAST MEDICAL HISTORY: The patient's medical history is otherwise insignificant. HOME MEDICATIONS: Her home medications are Loryna tablets for control and ibuprofen on a PRN basis. ALLERGIES: SHE HAS REPORTED ALLERGIES TO CODEINE AND HYDROCODONE. PHYSICAL EXAMINATION: The patient's vital signs on admission showed a temperature of 97.8, pulse 82, respiratory rate 16, BP 142/90, O2 saturation was 98% on room air. HEENT: Normocephalic and atraumatic. Pupils equal, round, and reactive to light. EOM intact. Oropharynx is dry. NECK: Supple without lymphadenopathy, thyromegaly, or JVD. CHEST: Clear to auscultation. HEART: Regular rate and rhythm without murmurs, rubs, or gallops. ABDOMEN: Soft. No palpable masses. Is slightly tender in left upper quadrant. EXTREMITIES: Without cyanosis, clubbing, or edema. NEURO: The patient is alert and oriented X 3. No focal deficits are noted. The patient's evaluation in the Emergency Room revealed essentially normal CBC and CMP. Urinalysis showed her to be dehydrated with specific gravity of 1.030 and ketones greater than 160. The patient had no x-rays in the Emergency Room, but we did a CT scan which showed some fluid distended jejunal bowel loops with fluid leveling, ileus vs enteritis. Remaining pelvic and abdomen CT scan was negative. ASSESSMENT: 1. THE PATIENT WITH CYCLIC VOMITING SYNDROME, PERSISTENT VOMITING, INABILITY TO KEEP ANY FLUIDS DOWN. She has been admitted to the hospital for IV fluid hydration. We will try Reglan 10 mg IV q 6 h. She will receive Protonix 40 mg IV. She will receive Zofran for nausea and Toradol for pain control.
[2021-09-21] MEDS: PROTONIX 40 MG IV IV SCH (10:56)
[2021-09-22] MEDS: Dextrose 5% -0.45 NaCl 1000 ML 1,000 ML IV SCH (01:28)
[2021-09-22] MEDS: Reglan 10 MG/2 ML IV SCH ×2 (05:54→11:56)
[2021-09-22 06:18] LABS: Absolute Neutrophil Ct (ANC) 3.38 (1.4-6.9); Basophil (Absolute #) 0.04 (0-0.4); Eosinophil (Absolute #) 0.54 (0-0.5); Hematocrit 42.5 % (35-47); Hemoglobin 14.5 gm/dl (12.0-16.0); Lymphocyte (Absolute #) 3.03 (1.0-4.6); Lymphocytes % 39.1 % (24.0-44.0); Mean Cell Volume 87.4 fl (78-100); Mean Corpuscular Hemoglobin 29.8 pg (26-32); Mean Corpuscular Hgb Concent. 34.1 g/dl (32-36); Mean Platelet Volume 10.1 fl (7.5-11.0); Monocyte (Absolute #) 0.76 (0.0-1.3); Monocytes % 9.8 % (0.0-12.0); Neutrophil % 43.6 % (36.0-66.0); Platelet Count 234 K/mm3 (150-450); Red Blood Count 4.86 M/mm3 (4.1-5.4); Red Cell Distribution Width 12.3 % (11.5-14.0); White Blood Count 7.8 K/mm3 (4.0-10.5)
[2021-09-22 06:21] LABS: ALBUMIN 3.7 g/dL (3.5-5.0); ALKALINE PHOSPHATASE 54 U/L (38-126); AMYLASE 97 U/L (30-110); ANION GAP 12.7 MEQ/L (5-15); BLOOD UREA NITROGEN 7 mg/dL (7-17); CHLORIDE 105 mmol/L (98-107); Calcium 9.1 mg/dL (8.4-10.2); Carbon Dioxide 23 mmol/L (22-30); Creatinine 1 1.01 mg/dL (0.52-1.04); EST GLOMERULAR FILTRATION RATE > 60.0 ML/MIN; Glucose 94 mg/dL (74-106); LIPASE 161 U/L (23-300); Potassium 3.2 mmol/L (3.5-5.1); SGOT/AST 18 U/L (14-36); SGPT/ALT 19 U/L (0-35); SODIUM 138 mmol/L (137-145); Total Protein 6.3 g/dL (6.3-8.2)
[2021-09-22] MEDS: Zofran 4 MG/2 ML VIAL IV PRN (07:48)
[2021-09-22] MEDS: PROTONIX 40 MG IV IV SCH (07:48)
[2021-09-22 11:44] VITALS: BP 119/66; PULSE 89; O2SAT 98
--- NOTE | 2021-09-22 14:47 | PCM.DS ---
Discharge Summary Date of Admission: 09/20/21 08:38 Admitting Physician: GERTRUDE SHEN Primary Care Provider: GERTRUDE SHEN Allergies Allergies acetaminophen [From Percocet] Allergy (Verified 09/20/21 08:51) Hives codeine Allergy (Verified 09/20/21 04:09) Hives diff breathing hydrocodone [From [place]] Allergy (Verified 09/20/21 04:09) Hives diff breathing oxycodone [From Percocet] Allergy (Verified 09/20/21 08:51) [facility] Summary - Hospital Course Hospital Course: Pt is a 21 yo female pt of Dr. Shen with hx cyclical vomiting syndrome who came in to ER with vomiting. CT showed fluid distended jejunal bowel loops with fluid leveling, ileus v enteritis. She was NPO for several days with IV fluids and reglan. She last vomited 2d ago. Passing lots of flatus today but no BM yet (before today, last ate solid foods 1 week ago, and last BM 6d ago). She started advancing her diet today; unfortunately, she started with meatloaf and had some subsequent heartburn. She received zofran with relief, then ate mashed potatoes and macaroni and cheese and tolerated them. Her potassium was slightly low today at 3.2, likely due to being NPO previously. I anticipate it will normalize; could recheck next week. She will be discharged to home today. - Vitals & Intake/Output Vital Signs: Vital Signs Temperature 98.2 F 09/22/21 11:43 Pulse Rate 89 09/22/21 11:43 Respiratory Rate 18 09/22/21 11:43 Blood Pressure 119/66 09/22/21 11:43 O2 Sat by Pulse Oximetry 98 09/22/21 11:43 Intake & Output: Intake & Output 09/20/21 09/21/21 09/22/21 09/23/21 11:59 11:59 11:59 11:59 Intake Total 3364 1350 120 Output Total 3600 2800 Balance -236 -1450 120 Weight 61.8 kg - Lab Result Diagrams: 09/22/21 05:20 09/22/21 05:20 Lab Results-Last 24 Hrs: Lab Results-Last 24 Hours 09/22/21 09/22/21 Range/Units 05:20 05:20 WBC 7.8 (4.0-10.5) K/mm3 RBC 4.86 (4.1-5.4) M/mm3 Hgb 14.5 (12.0-16.0) gm/dl Hct 42.5 (35-47) % MCV 87.4 (78-100) fl MCH 29.8 (26-32) pg MCHC 34.1 (32-36) g/dl RDW 12.3 (11.5-14.0) % Plt Count 234 (150-450) K/mm3 MPV 10.1 (7.5-11.0) fl Gran % 43.6 (36.0-66.0) % Eos # (Auto) 0.54 H (0-0.5) Absolute Lymphs (auto) 3.03 (1.0-4.6) Absolute Monos (auto) 0.76 (0.0-1.3) Lymphocytes % 39.1 (24.0-44.0) % Monocytes % 9.8 (0.0-12.0) % Eosinophils % 7.0 H (0.00-5.0) % Basophils % 0.5 (0.0-0.4) % Absolute Granulocytes 3.38 (1.4-6.9) Basophils # 0.04 (0-0.4) Sodium 138 (137-145) mmol/L Potassium 3.2 L (3.5-5.1) mmol/L Chloride 105 (98-107) mmol/L Carbon Dioxide 23 (22-30) mmol/L Anion Gap 12.7 (5-15) MEQ/L BUN 7 (7-17) mg/dL Creatinine 1.01 (0.52-1.04) mg/dL Estimated GFR > 60.0 ML/MIN Glucose 94 (74-106) mg/dL Calcium 9.1 (8.4-10.2) mg/dL Total Bilirubin 0.80 (0.2-1.3) mg/dL AST 18 (14-36) U/L ALT 19 (0-35) U/L Alkaline Phosphatase 54 (38-126) U/L Serum Total Protein 6.3 (6.3-8.2) g/dL Albumin 3.7 (3.5-5.0) g/dL Amylase 97 (30-110) U/L Lipase 161 (23-300) U/L - Radiology Exams Ordered Rad Exams-Entire Visit: Radiology Procedures Category Date Time Status KUB Routine Exams 09/21/21 08:26 Completed Discharge Exam General Appearance: no apparent distress, alert Neurologic Exam: oriented x 3, cooperative, normal mood/affect Eye Exam: eyes nml inspection Ears, Nose, Throat Exam: moist mucous membranes Neck Exam: normal inspection Respiratory Exam: normal breath sounds, lungs clear, No crackles/rales, No rhonchi, No wheezing Cardiovascular Exam: regular rate/rhythm, normal heart sounds, No murmur Gastrointestinal/Abdomen Exam: soft, normal bowel sounds, tenderness (mild, diffuse), No distention, No mass, No guarding, No rebound Extremity Exam: normal inspection, No pedal edema, No swelling Skin Exam: normal color, warm, dry, No rash Final Diagnosis/Problem List - Final Discharge Diagnosis/Problem (1) Cyclic vomiting syndrome Current Visit: Yes Status: Chronic Assessment & Plan: much improved, ready to d/c to home today. Discussed advancing diet with crackers/toast/rice. (2) Ileus Current Visit: Yes Status: Resolved Code(s): K56.7 - ILEUS, UNSPECIFIED (3) Hypokalemia Current Visit: No Status: Acute Assessment & Plan: Mild: I anticipate it to resolve with reg diet. recheck in 2 d. Code(s): E87.6 - HYPOKALEMIA - Discharge Disposition: Home, Self-Care Condition: Good Prescriptions: Continue Ondansetron ODT 4 MG [Zofran Odt 4 mg] 4 mg PO Q6H PRN PRN Reason: Nausea Famotidine [Pepcid] 20 mg PO DAILY PRN PRN Reason: Nausea Scopolamine 1 each TD Q3D Norethindrone Acetate [Norethindrone AC (Lupaneta)] 5 mg PO DAILY Elagolix Sodium [Orilissa] 150 mg PO DAILY Discontinued Ketorolac Tromethamine [Toradol] 10 mg PO Q8H PRN PRN 4 Days #12 tablet MDD 3 PRN Reason: Pain Instructions: Nausea and Vomiting, Adult (DC) Forms: Discharge Instructions
== END 2021-09-22 15:30 | disposition home or self-care (01) ==
LOC: ED 03:45 → MED SURG 08:38
PROVIDERS: ADMIT Family Medicine; ATTEND Family Medicine
DX: R11.15 Cyclical vomiting syndrome unrelated to migraine (principal); K56.7 Ileus, unspecified; E87.6 Hypokalemia; Z20.828 Contact with and (suspected) exposure to other viral communicable diseases; Z79.899 Other long term (current) drug therapy
CPT/HCPCS: 0241U; 36000; 36415; 74018; 74178; 80053; 80307; 81015; 82150; 83690; 84484; 84703; 85025; 93268; 96360; 96374; 99285; G0378; J1885; J2405; J3010; Q0162